=== PATIENT | female | born 1950 | race Caucasian/White ===

== ENCOUNTER 2024-11-18 06:11 | Day surgery (SDC) | payer MEDICARE, OTHER, SELFPAY ==
[2024-11-18] VITALS (15 sets, daily range): BP systolic 85–126; BP diastolic 33–66; BMI 29.3
[2024-11-18 07:43] LABS: Glucose - Point of Care 129 mg/dl (70-99)
--- NOTE | 2024-11-18 10:58 | ITS.CL.CATH ---
Vice President [employer] - Catheterization
Cardiac Catheterization
Procedure Report:
CARDIAC CATHETERIZATION REPORT
Date of Procedure: 11/18/2024
Referring: Tom Chavez D.O.
Indication: Progressive aortic and mitral valve disease, heart failure with preserved ejection fraction.
PROCEDURE:
1. Right heart catheterization.
2. Coronary angiography.
A total of 0 minutes of procedural/moderate sedation was utilized. An independent medical reception specialist was present to assist with and help manage the patient's level of consciousness and physiologic status.
ACCESS:
1. 6 [place] right radial artery using a modified Seldinger technique.
2. 5 [place] right antecubital vein using a previously placed IV.
CATHETERS:
1. 5 [place]itian balloon.
2. 5 [place] JL 3.5.
3. 5 [place] JR4.
4. 4 [place] multipurpose.
HEMODYNAMIC DATA
Weight (kg): 73.3
AO (s/d/x, mmHg): 118/58/86
LV (s/x, mmHg): Not obtained. 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
PCWP (a/v/x, mmHg): 25/45/21
PA (s/d/x, mmHg): 48/23/31
RV (s/x, mmHg): 48/11
RA (a/v/x, mmHg): 14/14/12
SVC SvO2 (%): 64.0
IVC SvO2 (%): Not obtained.
RA SvO2 (%): Not obtained.
RV SvO2 (%): Not obtained.
PA SvO2 (%): 63.6
SaO2 (%): 89.0
Hbg (g/dL): 11.7
FABBY
CO (L/min): 4.0
CI (L/min/m2): 2.30
Thermodilution
CO (L/min): Not performed.
CI (L/min/m2): Not performed.
TPG (mmHg): 10
PVR (Alvarado Units): 2.5
SVR (dynes*seconds*cm^-5): 1480
AVO2 Diff (Volume %): 4.04
AV gradient (x, mmHg): Not obtained.
AV area (cm2): Not obtained.
MV gradient (x, mmHg): Not obtained.
MV area (cm2): Not obtained.
LEFT VENTRICULOGRAPHY: Not performed.
AORTOGRAPHY: Not performed.
CORONARY ANGIOGRAPHY
Dominance: Right.
Left Main: Normal size, long, bifurcating vessel. There is no coronary artery disease.
LAD: Normal size vessel giving rise to 2 significant diagonals before wrapping around the apex. There is dense external calcification but minor internal luminal irregularities.
Ramus: Congenitally absent.
Circumflex: Normal size, nondominant vessel giving rise to 1 large obtuse marginal. The marginal is moderate to severely tortuous. There is no coronary artery disease.
RCA: Normal size, dominant vessel. There is a calcified, 90% lesion in the proximal RCA followed by a 60% lesion in the proximal RCA.
INTERVENTIONS
1. Pullback gradient from the aorta into the right subclavian demonstrating no significant stenosis.
Narrative:
Cardiac catheterization was performed from the right radial artery access point. While attempting to advance the diagnostic catheter into the aorta, significant resistance was encountered in the right subclavian/innominate. A hydrophilic J-shaped
Glidewire was used to cross the subclavian stenosis and enter the ascending aorta. After completing the diagnostic cardiac catheterization, a multipurpose catheter was placed in the ascending aorta and pullback gradient was obtained to assess for
the severity of the stenosis. Interestingly, there was no significant stenosis observed on pullback, suggesting that the calcified lesion in the subclavian is not contributing to any meaningful degradation of pressure in the right arm.
Closure Device: Vascular band for the right radial artery, manual pressure for the right antecubital vein.
Radiation dose (mGy): 277.72
DAP (cm2.Gy): 24.5413
Fluoroscopy time (minutes): 5.4
CONCLUSIONS:
1. Right dominant circulation with dense external calcification of the left circulation but only minor luminal irregularities within the LAD and a calcified, 90% lesion in the proximal RCA followed by a 60% lesion in the proximal RCA.
2. Moderately elevated filling pressures (PCWP = 21 mmHg at 73.3 kg) with a large V wave (45 mmHg) consistent with known history of severe mitral valve regurgitation.
3. 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
4. Moderate aortic valve stenosis and severe, eccentric mitral regurgitation by echocardiography.
5. Calcific, atherosclerotic plaque of the right subclavian artery without significant pressure degradation on pullback.
6. Mild postcapillary pulmonary hypertension (mean PA = 31 mmHg, PCWP = 21 mmHg, cardiac output = 4.0 L/min, PVR = 2.5 Alvarado units), WHO group 2.
RECOMMENDATIONS:
1. Expectant management after cardiac catheterization via right radial/antecubital approach.
2. Limited weight bearing on the right wrist for one week.
3. Continue secondary prevention with aspirin 81 mg daily and atorvastatin 80 mg daily. Goal LDL <55.
4. Continue with evaluation for surgical valve replacement given likely poor candidacy for TAVR as well as MitraClip.
5. Continue current diuretics and GDMT as hemodynamics will tolerate.
Copy to: ALICE Gunn
Tom Chavez, DO, FACC, FACP
[2024-11-18 11:15] LABS: Glucose - Point of Care 123 mg/dl (70-99)
[2024-11-18] MEDS: LASIX 20 MG IV (11:40)
[2024-11-18] MEDS: KCL 40 MEQ PO (11:42)
== END 2024-11-18 13:53 | disposition home or self-care (01) ==
LOC: CATH 06:11
PROVIDERS: ATTENDING PHYSICIAN Internal Medicine Cardiovascular Disease; FAMILY PHYSICIAN Nurse Practitioner Family
DX: I08.0 Rheumatic disorders of both mitral and aortic valves (principal); I11.0 Hypertensive heart disease with heart failure; I50.32 Chronic diastolic (congestive) heart failure; E78.2 Mixed hyperlipidemia; E11.9 Type 2 diabetes mellitus without complications; Z87.891 Personal history of nicotine dependence; Z82.49 Family history of ischemic heart disease and other diseases of the circulatory system; Z79.82 Long term (current) use of aspirin; Z79.84 Long term (current) use of oral hypoglycemic drugs; I27.29 Other secondary pulmonary hypertension
CPT/HCPCS: 93312; 93320; 93325; C1894; C1769; 82962; 93456; Q9967

== ENCOUNTER → 2024-11-30 13:39 | Outpatient (REF) | payer MEDICARE, OTHER, SELFPAY | LOC: RAD 13:39 | PROVIDERS: ATTENDING PHYSICIAN Thoracic Surgery (Cardiothoracic Vascular Surgery); FAMILY PHYSICIAN Nurse Practitioner Family | DX: I34.0 Nonrheumatic mitral (valve) insufficiency (principal); Z01.810 Encounter for preprocedural cardiovascular examination | CPT/HCPCS: 71275; 74174; Q9967 ==

== ENCOUNTER 2024-12-07 05:15 | Inpatient (IN) | payer MEDICARE, OTHER, SELFPAY ==
[2024-12-06 12:32] VITALS: BMI 28.5
[2024-12-06 13:36] LABS: Hematocrit 36.6 % (37.0-47.0); Hemoglobin 11.9 g/dL (12.0-16.0); Mean Corp Hgb Conc. 32.5 g/dL (33.0-37.0); Mean Corpuscular Volume 86.7 fL (81.0-99.0); Nucleated Red Blood Cells % 0 %; Platelet Count 198 10^3/uL (130-400); Red Cell Dist. Width 13.6 % (11.5-14.5)
[2024-12-06 13:46] LABS: INR 0.96; PT 13.1 Sec (11.4-14.6)
[2024-12-06 13:57] LABS: Urine Character Clear (Clear)
--- NOTE | 2024-12-06 14:02 | CM ---
Chart reviewed. Met with the patient in PAT. Reviewed preoperative and postoperative instructions and restrictions, along with showering guidelines. Gave patient 2 soaps. Patient is agreeable to a home visit by CT Transitional RN. Patient is
independent of ADLS, lives alone in a 2 STH, 1st floor set up, 1 [facility], ambulates with a SPC, has a shower chair and grab bars. Patient with 3 supportive daughters to help assist and a brother who lives close. Plan is for the patient to return home
with CT Transitional RN. CM to follow
[2024-12-06 14:13] LABS: ALT (SGPT) 24 U/L (0-35); AST (SGOT) 28 U/L (14-36); Albumin 4.9 g/dl (3.5-5.0); Alkaline Phosphatase 62 U/L (38-126); Blood Urea Nitrogen 25 mg/dl (7-17); Calcium 10.3 mg/dl (8.4-10.2); Carbon Dioxide 31 mmol/L (22-30); Chloride 103 mmol/L (98-107); Estimated Creatinine Clearance 66 ml/min; Glucose 101 mg/dl (70-99); Potassium 4.1 mmol/L (3.5-5.1); Sodium 141 mmol/L (135-145); Total Protein 7.1 g/dl (6.3-8.2); eGFR > 60.00
[2024-12-06 14:36] LABS: Glycohemoglobin (HgbA1c) 6.1 % (4.0-5.6)
[2024-12-07] VITALS (15 sets, daily range): BP systolic 75–121; BP diastolic 44–84; BMI 28.5
[2024-12-07] MEDS: LOPRESSOR 25 MG PO (05:43)
[2024-12-07] MEDS: PROTONIX 40 MG PO (05:43)
[2024-12-07] MEDS: MAGNESIUM OXIDE 500 MG PO (05:43)
[2024-12-07] MEDS: BACTROBAN 2% OINTMENT 1 APPLIC NASAL ×2 (05:44→19:41)
--- NOTE | 2024-12-07 05:50 | PTCARENOTE ---
Pt admitted to room 2261. Pt confirmed 2 CHG showers at home and NPO status. Pt oriented to room. Changed into gown. Weight and VS obtained. Pt clipped and wiped w/ CHG wipes. ABO drawn and sent. Admission questions completed. Home medications
confirmed. Daughter at the bedside. Call lyons within reach.
--- NOTE | 2024-12-07 06:02 | W.CVOR.SURPR ---
CVOR Surgeon Immed Pre Op
-
I have examined this patient prior to performance of the scheduled procedure.
The patient's condition is unchanged from the time of the dictated/written History and
Physical and the patient is able to undergo the scheduled procedure.
High risk AVR MVR CABG LAAE
[2024-12-07 07:09] LABS: ACT+ - POC 131 Seconds (82-134)
[2024-12-07 08:17] LABS: ACT+ - POC 640 Seconds (82-134)
[2024-12-07 08:33] LABS: Urine Character Clear (Clear)
[2024-12-07 08:52] LABS: ACT+ - POC 646 Seconds (82-134)
[2024-12-07 09:22] LABS: ACT+ - POC 582 Seconds (82-134)
[2024-12-07 09:58] LABS: ACT+ - POC 527 Seconds (82-134)
--- NOTE | 2024-12-07 10:03 | W.PN.CD ---
Today's Communication / Plan
-
Anticipate routine post operative management.
Wean vent to extubate.
Wean pressors/inotropes to MAP > 65 mmHg, CI > 1.8 L/min/m2.
Impression / Plan
-
Impression/Plan: 74 y/o female with NIDDM, HTN< HLD, EtOH dependence, moderate and severe, symptomatic mitral valve regurgitation and CAD in the RCA admitted for elective AVR/MVr/CABG.
#Severe mitral valve regurgitation/moderate aortic valve stenosis
-Chronic, progressive.
-Currently undergoing AVR/MVr with concurrent CABG/LAAE.
-Anticipate routine post operative course.
-Wean vent to extubate.
-Wean pressors/inotropes for a MAP > 65 mmHg, CI > 1.8 L/min/m2.
-Pain/chest tube management per CTS.
#CAD
-Chronic, progressive.
-Currently undergoing surgery (including single vessel CABG).
-Post operative management as above.
-Continue atorvastatin when taking PO.
#HTN
-Chronic, stable.
-Reintroduce antihypertensive meds when BP will permit.
#HLD
-Chronic, stable.
-Continue atorvastatin.
-Goal LDL < 55.
#NIDDM2
-Chronic.
Subjective/Interval History:
Currently undergoing open heart surgery.
DATA:
CTA Chest/Abdomen/Pelvis, 11/30/2024:
IMPRESSION:
1. Coronary and aortic advanced atherosclerotic changes. Negative for aortic aneurysmal dilation. Stenosis of left subclavian artery.
2. No acute pulmonary process.
3. No acute intra-abdominal process.
DANIEL. 11/18/2024:
CONCLUSIONS
Normal biventricular size and systolic function without regional wall motion
abnormality. LVEF 60-65%.
Severe eccentric mitral regurgitation due to P3 flail.
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
of the aortic valve.
At least mild aortic stenosis.
No prior study available for comparison.
Cardiac Catheterization, 11/18/2024:
CONCLUSIONS:
1. Right dominant circulation with dense external calcification of the left circulation but only minor luminal irregularities within the LAD and a calcified, 90% lesion in the proximal RCA followed by a 60% lesion in the proximal RCA.
2. Moderately elevated filling pressures (PCWP = 21 mmHg at 73.3 kg) with a large V wave (45 mmHg) consistent with known history of severe mitral valve regurgitation.
3. 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
4. Moderate aortic valve stenosis and severe, eccentric mitral regurgitation by echocardiography.
5. Calcific, atherosclerotic plaque of the right subclavian artery without significant pressure degradation on pullback.
6. Mild postcapillary pulmonary hypertension (mean PA = 31 mmHg, PCWP = 21 mmHg, cardiac output = 4.0 L/min, PVR = 2.5 Alvarado units), WHO group 2.
Physical Exam
Vital Signs/Labs
Vital Signs
Temp Pulse Resp BP Pulse Ox
36.9 C 96 18 121/80 97
12/07/24 05:37 12/07/24 05:37 12/07/24 05:37 12/07/24 05:16 12/07/24 05:37
12/05/24 12/06/24 12/07/24
11:59 11:59 11:59
Actual Weight 70.7 kg
12/06/24 12:38
12/06/24 12:38
PT 13.1 Sec (11.4-14.6) 12/06/24 12:38
INR 0.96 12/06/24 12:38
Physical Exam
Constitutional: No acute distress and Comfortable
EENT: Other (ET tube in place.)
Cardiovascular: Other (Chest currently opened, heart is plainly visible in the operative field.)
Neuro/Psych: Other (Intubated/sedated.)
Data Reviewed
-
Date of Service: December 07, 2024
Medical Decision Making: Reviewed Test Results, Test Interpretation and Review of Case with other Provider
EKG: Tracing Personally Visualized and interpreted and Report Reviewed by me
Echo: Report Reviewed by me
X-Ray/CT/US/MRI/NUC/PET: Image Personally Visualized and interpreted and Report Reviewed by me
Medical Tests (PFT, Pathology etc): Image Personally Visualized and interpreted and Report Reviewed by me
Labs: Labs Reviewed by me
[2024-12-07 10:07] LABS: Urine Squamous Cell >30 /LPF (Few)
[2024-12-07 10:10] LABS: Urine White Cell 30-40 /HPF (0-5)
[2024-12-07 10:11] LABS: Urine Red Blood Cell 0-2 /HPF (0-2)
[2024-12-07 10:15] LABS: B.E. - POC 5.7 mmol/L; Glucose - POC 145 mg/dl (70-99); HCO3 - POC 28 mmol/L (21-28); Hematocrit - POC 26 % PCV (37-47); Hemodilution- POC Yes; Hemoglobin Calculated - POC 8.9; Ionized Calcium - POC 1.06 mmol/L (1.15-1.33); Lactate - POC 0.94 mmol/L (0.36-0.75); O2 Saturation %Calculated-POC 99.9 % (94-98); PCO2 - POC 33 mmHg (35-48); PO2 - POC 309 mmHg (83-108); POC Comment CPB; Potassium - POC 3.9 mmol/L (3.5-5.1); Sodium - POC 144 mmol/L (136-145); Specimen Type - POC Arterial; pH - POC 7.55 (7.35-7.45)
--- NOTE | 2024-12-07 10:25 | CM ---
Chart reviewed. Patient is in the OR today. Patient is independent of ADLS, lives alone in a 2 STH, 1st level set up, 1 [facility], ambulates with a SPC and also has a shower chair and grab bars. Patient with 3 supportive children and a brother who
lives close. Plan is for the patient to return home with CT Transitional RN. CM to follow
[2024-12-07 10:26] LABS: ACT+ - POC 589 Seconds (82-134)
[2024-12-07 11:07] LABS: B.E. - POC 7.3 mmol/L; Glucose - POC 140 mg/dl (70-99); HCO3 - POC 31 mmol/L (21-28); Hematocrit - POC 27 % PCV (37-47); Hemodilution- POC Yes; Hemoglobin Calculated - POC 9.1; Ionized Calcium - POC 1.09 mmol/L (1.15-1.33); Lactate - POC 1.31 mmol/L (0.36-0.75); O2 Saturation %Calculated-POC 99.9 % (94-98); PCO2 - POC 41 mmHg (35-48); PO2 - POC 296 mmHg (83-108); POC Comment CPB; Potassium - POC 3.5 mmol/L (3.5-5.1); Sodium - POC 144 mmol/L (136-145); Specimen Type - POC Arterial; pH - POC 7.49 (7.35-7.45)
[2024-12-07 11:14] LABS: ACT+ - POC 123 Seconds (82-134)
[2024-12-07 11:17] LABS: B.E. - POC 4.7 mmol/L; Glucose - POC 122 mg/dl (70-99); HCO3 - POC 29 mmol/L (21-28); Hematocrit - POC 24 % PCV (37-47); Hemodilution- POC Yes; Hemoglobin Calculated - POC 8.1; Ionized Calcium - POC 1.25 mmol/L (1.15-1.33); Lactate - POC 0.82 mmol/L (0.36-0.75); O2 Saturation %Calculated-POC 100.0 % (94-98); PCO2 - POC 38 mmHg (35-48); PO2 - POC 523 mmHg (83-108); POC Comment POST; Potassium - POC 3.2 mmol/L (3.5-5.1); Sodium - POC 142 mmol/L (136-145); Specimen Type - POC Arterial; pH - POC 7.48 (7.35-7.45)
--- NOTE | 2024-12-07 11:29 | W.PN.CT.SURG ---
CT Surgery Operative Note
-
CARDIAC SURGERY OPERATIVE REPORT
Preoperative Diagnosis: Mixed pathology mitral valve with severe insufficiency, severe aortic valve stenosis, single-vessel coronary artery disease
Postoperative Diagnosis: Same, new onset atrial fibrillation
Procedure(s) Performed:
1. Standard sternotomy with aortic and bicaval cannulation
2. Modified left atrial maze [encompass clamp with RF ablation] and left atrial appendage exclusion [35 mm device]
3. Chordal sparing mitral valve replacement [relocation of anterior leaflet to the posterior annulus] using a 29 mm bioprosthesis
4. Extensive debridement of the mitral annulus and aortic annulus using an ultrasonic debrider, modifier 22 for added complexity and time
5. Surgical aortic valve replacement [23 mm bioprosthesis]
6. CABG x 1 [Ao to RSVG to distal RCA], endoscopic vein harvesting of the right lower and left lower extremity
7. Placement of temporary atrial and ventricular pacing wires
8. Transesophageal echocardiography
Date of Surgery: 12/07/2024
Comorbidities:
1. Mixed pathology mitral valve insufficiency, severe, type IIIb and II
2. Severe aortic valve stenosis with a mean gradient of 55 on DANIEL
3. Diabetes type 2
4. Hypertension
5. Hyperlipidemia
6. Osteoporosis
7. Epidural abscess
8. History of alcohol abuse
Attending Surgeon: Santiago Juarez MD, MS
Assistants: Natasha Sanchez PA-C (present and necessary to first breaker feeder, retraction, suction, exposure, suture management, and wound closure under my direction) and Seema Samuels PA-C (endo vein harvest)
Anesthesiology: Anthony Virgen MD and Donato Figueroa CRNA
Scrub and Circulating RNs: Papa Phan, RN, Mohsen Umanzor RN
Pouring Crane Operator: Nato Melara CCP
Anesthesia: GETA
EBL: per perfusion records
Products: None
CPB Time: 153 minutes
Aortic Cross Clamp Time: 132 minutes
Indication(s) for Procedures: This is a 74-year-old female with mixed otology mitral valve with mitral annular calcification and severe insufficiency, she also had aortic valve stenosis and based on her recent worsening of her symptoms, she
underwent workup for surgical evaluation. As part of her workup she had a left heart catheter demonstrated single-vessel ostial RCA disease. She was ultimately offered double valve replacement given the mitral pathology, single-vessel bypass and
ligation of her left atrial appendage.
Aortic Valve Description: Heavily calcified trileaflet aortic valve, heavily calcified sinotubular junction extending down to the sinuses, left and right coronary ostia normal anatomic positions with the cephalad portion of the ostia heavily
calcified into the STJ.
Mitral Valve Description: Thickening of the anterior and posterior leaflets, the interestingly was a perforation of the P3 leaflet as there was mitral annular calcification and infiltrating into the P2 and P3 segments. Given the retracted leaflets
in the posterior aspect and the MAC, her valve was not salvageable.
Findings: Her left ventricular ejection fraction preoperatively was 60% with no significant regional wall motion abnormalities. She had severe degree of mitral valve insufficiency as well as a severe degree of aortic valve stenosis. Following
surgery EF remained the same at 55% with no new regional wall motion abnormalities when she was back in sinus rhythm. Her mitral valve was replaced in a chordal sparing technique, I did have to use the CUSA debridement device at the P2 P3 segment
of the valve after detaching the posterior leaflet as there was a large area of calcification that would not allow compliance of the annulus or placement of a bioprosthetic valve. The anterior leaflet of the mitral valve was resected and the
primary cords were relocated to the posterior annulus at P2 and P3. A total of 13 pledgeted 2 Ethibond sutures were placed from LV through leaflet through annulus and ultimately through the cuff of the bioprosthetic valve which was secured to place
with core knots. An LV vent was then placed across the mitral valve and the left atrium was partially closed. The aortic valve was resected and the CUSA debridement device was also used at the noncoronary cusp as it was heavily calcified here. A
total of 13 nonpledgeted 2 Ethibond sutures were placed from LVOT through annulus through sewing cuff of a 23 mm bioprosthetic valve. It was secured into place after with core knots gently working it down into the annulus through the calcified
sinotubular junction. The left and right coronary ostia were visualized to be unobstructed and the annulus to be well-approximated to the sewing cuff. Single-vessel bypass was performed to distal RCA, this was a good quality target but easily
accommodated a 2.0 mm probe. The vein graft was beveled accordingly and end-to-side anastomosis was created. After induction of anesthesia, she did have multiple episodes of atrial fibrillation and so a posterior wall isolation was performed with
the encompass clamp and the left atrial appendage was ligated flush the base with no residual flow. The ligament of Ermias was also divided. Final mean gradient on the mitral valve was 1 mmHg and the final mean gradient across the aortic valve
was 7 mmHg. There is no PVL of either prosthesis trace degree of central mitral valve insufficiency on the bioprosthetic valve.
Specimen(s): Parts of the mitral valve leaflets, aortic valve leaflets.
Prosthesis:
1. 23 mm Gonzalez Inspiriss Resilia aortic valve, serial #[id number]
2. 29 mm Gonzalez mitris Resilia mitral valve, serial #[id number]
3. 35mm left atrial appendage clip, see #[id number]
Description of Procedure: The patient was taken to the operating room. Their identity and procedure to be performed were verified and they were positioned supine on the operating table. Induction via general anesthesia with endotracheal intubation
was performed and central venous access and arterial monitoring were inserted. A preoperative transesophageal echocardiogram was performed to assess cardiac function and valvular function. The patient was then prepped and draped from chin to feet in
a sterile fashion. A preoperative time-out was performed with all members of the team present. A midline chest incision was performed along with median sternotomy. Simultaneous access to the right lower extremity and then left lower extremity was
performed for endoscopic vein harvest. She had poor right thigh vein. The innominate vein was isolated. Full heparinization was given (a total of 45,000 units). We created a pericardial well. The aortic cannulation site was chosen where it was
soft, pliable, and free of calcium. Cannulation was performed with an arterial cannula in the ascending aorta, angled metal tip cannular in the superior vena cava and straight bendable cannula in the inferior vena cava. The arterial cannula line had
an appropriate bounce and correlating pressures. Next, a root vent/antegrade cannula was inserted into the ascending aorta. The ACT was confirmed to be over 400 and retrograde autologous priming was performed before commencing cardiopulmonary
bypass. At this point the SVC was away from the main and right pulmonary artery. The oblique sinus was also developed. While on cardiopulmonary bypass the encompass clamp was passed underneath the SVC and IVC across the transverse and
oblique sinuses, respectively. 3 successful pairs of ablation were performed. The pulmonary artery was away from the aorta to facilitate a clamp site. Sondergaard�s groove was developed. The aortic cross-clamp was placed after decreasing
the flow on the bypass and mean arterial pressure. A total of 1.2L initial dose of antegrade Del-Nido cardioplegia solution was given and planned for re-dosing every 60 minutes as necessary. There was rapid electro-mechanical arrest of the heart at
400 deformed and 70 cc of cardioplegia. The left ventricle was observed for distention on echocardiogram and manual palpation. Cold slush was placed into a lap on the RV and we systemically cooled to 34 degrees centigrade. Once the heart was fully
arrested was rotated medially and the ligament of Ermias was divided. The left atrial appendage was then clipped flush to the base with a 35 mm device.
Carbon dioxide was used to flood the field. We manually identified the location of the right coronary take off. An aortotomy was made approximately 2cm above the sinotubular junction. The location of both left and right coronary vessels were
visualized in the root.The leaflets were excised and sent for pathological assessment. The annulus was debrided of any calcium being mindful of the annulus and membranous septum. The root and left ventricular outflow tract were thoroughly irrigated
to remove any debris. A drop sucker is in place across the annulus into the LVOT
Next, the mitral valve was accessed via the Sondergaard's groove followed by valve analysis. The mitral valve was replaced as described above. The left ventricular vent was repositioned across the mitral valve into the left ventricular and the left
atrium was closed with a 3-0 prolene. At this point I dissected the distal RCA using a [place] blade and a small coronary arteriotomy was then created. An aside anastomosis was created with the vein graft using 7-0 Prolene in a running fashion.
Test dosing of antegrade cardioplegia down the graft confirmed excellent flow and we also used this opportunity to give additional cardioplegia to protect the right coronary system. Additional direct ostial left main cardioplegia was also given.
I turned my attention back toward the root. Additional debridement was performed using an ultrasonic debridement device A total of 13 Non-pledgeted 2-0 ethibond inverted annular sutures were placed FVES-nd-vyams circumferentially. These were
brought through the sewing cuff of the prosthetic valve which as then parachuted into place. The left and right coronary ostia were visualized and were unobstructed by the valve. A Cor-Knot device was used to secure the annular sutures. The valve
was inspected and was well seated. The aortotomy was approximated with 4-0 prolene in two layers. I then performed a single aortotomy with a 4.0 mm punch and the proximal end of the vein graft was then anastomosed in end-to-side fashion using 6-0
Prolene.
De-airing maneuvers were performed and temporary atrial and ventricular pacing wires were placed at the SVC/RA junction and base of the right ventricle, respectively. The patient was placed in a Trendelenburg position and flows on bypass were
lowered. The aortic cross clamp was removed and flows were slowly brought back up. The left atrial suture line was hemostatic. Transesophageal echocardiography revealed no evidence of paravalvular leaks and normal leaflet excursion and ventricular
function was normal. The AV prosthesis was well seated without PVL or AI. Once de-airing was satisfactory the left ventricular and root vents were removed. After verifying acceptable parameters, we initiated weaning from cardiopulmonary bypass. Once
we were off cardiopulmonary bypass, the venous cannulas was clamped and removed sequentially. A test dose of protamine was administered and the patient was monitored for any adverse reaction before resuming protamine. Once half of the protamine dose
was delivered, pump suckers were turned off and the systolic blood pressure was lowered for aortic decannulation. The aortic cannula was removed and purse strings were tied down. All cannulation sites were oversewn with a 4-0 prolene. The left
atrial suture line was inspected and hemostasis was confirmed. Mediastinal hemostasis was obtained. Two #24 Darnell drains were placed within the pericardium. A single #19 Darnell drain was placed to the right hemithorax. The sternum was approximated
with 4 #7 single and 3 #8 double stainless steel wires. Fascia was approximated with #1 vicryl suture. The subcutaneous, dermis and epidermis were closed in layers in a running fashion. The skin wound was cleansed and dressed.
All instrument, sponge, and needle counts were confirmed to be correct x 2 at the end of the operation. The patient was transferred to the cardiac intensive care unit in critical but stable condition.
I, Dr. Santiago Juarez, was present, scrubbed for, and performed all critical elements of this procedure.
Santiago Juarez MD, MS
Cardiothoracic Surgeon
[facility]
This dictation was created using the [employer] dictation system. Please excuse any grammatical, typographical, or 'sound alike' errors
[2024-12-07 11:56] LABS: B.E. - POC 7.6 mmol/L; Glucose - POC 132 mg/dl (70-99); HCO3 - POC 31 mmol/L (21-28); Hematocrit - POC 27 % PCV (37-47); Hemodilution- POC Yes; Hemoglobin Calculated - POC 9.3; Ionized Calcium - POC 1.04 mmol/L (1.15-1.33); Lactate - POC < 0.30 mmol/L (0.36-0.75); O2 Saturation %Calculated-POC 100.0 % (94-98); PCO2 - POC 39 mmHg (35-48); PO2 - POC 476 mmHg (83-108); POC Comment CPB; Potassium - POC 3.9 mmol/L (3.5-5.1); Sodium - POC 142 mmol/L (136-145); Specimen Type - POC Arterial; pH - POC 7.51 (7.35-7.45)
[2024-12-07 11:56] LABS: B.E. - POC 2.8 mmol/L; Glucose - POC 136 mg/dl (70-99); HCO3 - POC 28 mmol/L (21-28); Hematocrit - POC 34 % PCV (37-47); Hemodilution- POC Yes; Hemoglobin Calculated - POC 11.6; Ionized Calcium - POC 1.23 mmol/L (1.15-1.33); Lactate - POC < 0.30 mmol/L (0.36-0.75); O2 Saturation %Calculated-POC 99.9 % (94-98); PCO2 - POC 44 mmHg (35-48); PO2 - POC 337 mmHg (83-108); Potassium - POC 3.4 mmol/L (3.5-5.1); Sodium - POC 143 mmol/L (136-145); Specimen Type - POC Arterial; pH - POC 7.41 (7.35-7.45)
[2024-12-07 11:57] LABS: B.E. - POC 7.5 mmol/L; Glucose - POC 165 mg/dl (70-99); HCO3 - POC 32 mmol/L (21-28); Hematocrit - POC 27 % PCV (37-47); Hemodilution- POC Yes; Hemoglobin Calculated - POC 9.2; Ionized Calcium - POC 1.06 mmol/L (1.15-1.33); Lactate - POC < 0.30 mmol/L (0.36-0.75); O2 Saturation %Calculated-POC 100.0 % (94-98); PCO2 - POC 43 mmHg (35-48); PO2 - POC 364 mmHg (83-108); POC Comment CPB; Potassium - POC 4.1 mmol/L (3.5-5.1); Sodium - POC 142 mmol/L (136-145); Specimen Type - POC Arterial; pH - POC 7.48 (7.35-7.45)
--- NOTE | 2024-12-07 12:20 | PTCARENOTE ---
Received pt from CVOR team. Intubated and sedated on the ventilator. # 8 ETT at 22 cm rt lip. SIMV 40 % 14/ 450/ 5/ 5 pulse ox 99%
[2024-12-07 12:24] LABS: Glucose - Point of Care 133 mg/dl (70-99)
--- NOTE | 2024-12-07 12:30 | PTCARENOTE ---
Received pt from CVOR team. Intubated and sedated on the ventilator. # 8 ETT at 22 cm rt lip. SIMV 40 % 14/ 450/ 5/ 5 pulse ox 99%. SR with 1 degree AVB on monitor. A & V epicardial wites intact. No pacing noted at this time. Chest tubes x 3
to - 20 cm suction. No air leak or crepitus noted. RT IJ cordis with swan at 50 cm. RT Radial A line transducing. Lines leveled, recalibrated and flushed. BP Labile , LR 250 ML bolus administered. Levophed titrated as needed. Insulin and
precedex infusing. She flow sheets for totals/titrations. Abdomen obese and non tender. Lawrence draining pink tinged urine. Pulses palpable. Surgical sites well approximated. Plan discussed with team at handoff.
[2024-12-07 12:37] LABS: B.E. 3.2 mmol/L; HCO3 26.5 mmol/L (21-28); O2 Saturation % 99.6 % (94-98); O2 Therapy vent; PCO2 34 mmHg (32-35); PO2 167 mmHg (83-108); Potassium 3.6 mMOL/L (3.5-5.1); Sodium 140 mMOL/L (136-145)
--- NOTE | 2024-12-07 12:47 | W.PN.UPDATE ---
Update Note
Progress Note Update
74-year-old female was electively admitted on 12/07/2024 for AVR, MVR, CABG, and clip due to severe MR, and a 90% RCA stenosis.
IV fluids: 1300
U.O.:� 600
UF:� 1000
Blood:� none
Wires:� A + V
Drips: Levo @ 6, Insulin, Precedex @ 0.3
�
NEURO: sedated, pupils +2mm B/L
RESP: #8OT @24cm> 450/50%/14/5. Lungs clear B/L. 2 mediastinal (10cc on arrival) and R pleural (10cc on arrival) chest tubes to -20cm suction. Sanguineous drainage, no air leak, no crepitus
CV: RRR +S1, S2, no S3, no�rub, no murmur. Dermabond to median sternotomy. RIJ w/Lorain locked @ 40cm. PA 43/21; CVP 12
ABD: obese, soft, no BS
EXT: no edema, +2/4 DP pulses B/L, no femoral bruit, LLE ROJAS wrap intact; right radial A-line intact
: Lawrence with light pink tinged urine
�
A/P: POD #0 s/p aortic valve replacement #23 mm Inspiris Resilia, mitral valve replacement #29 mm Mitris Resilia (chordal sparing), CABG x 1 [SVG to distal RCA], modified left atrial maze [encompass clamp with RF ablation] and left atrial appendage
exclusion [#35 mm device]
DANIEL: EF�55%, AV 14/7mmHg, MV 2/1mmHg, no residual lumen s/p clip, mild TR
- wean and extubate
# s/p AVR/MVR
- will need instruction regarding antibiotic prophylaxis for dental and invasive procedures
- TTE prior to DC
# CAD
- will require ASA, Plavix, high intensity statin, beta-tino
# brief intra-op AF
- currently SR w/1st AVB
- AF prophylaxis with Amio 200mg TID
# acute surgical blood loss anemia-expected
- trend CBC
�
# T2DM (A1C 6.1)
- insulin infusion x 48h
- diabetes LITHODUPLICATOR OPERATOR consulted
- on MFM 500mg/d
- t/c Farxiga
�
# Moderate left subclavian stenosis
- assess for discrepancy in B/L UE cuff pressures
[2024-12-07 12:53] LABS: Hematocrit 24.5 % (37.0-47.0); Hemoglobin 8.2 g/dL (12.0-16.0); Platelet Count 132 10^3/uL (130-400)
[2024-12-07] MEDS: ANCEF 10 IV ×2 (12:56→12:57)
[2024-12-07] MEDS: LR 250 ML IV ×4 (12:57→16:44)
[2024-12-07] MEDS: NSS 500 IV (12:57)
[2024-12-07] MEDS: KCL 50 IV ×2 (12:57→13:42)
[2024-12-07 13:00] LABS: B.E. 1.7 mmol/L; HCO3 25.6 mmol/L (21-28); O2 Saturation % 99.8 % (94-98); PCO2 36 mmHg (32-35); PO2 140 mmHg (83-108); Potassium 3.8 mMOL/L (3.5-5.1)
[2024-12-07 13:01] LABS: Blood Urea Nitrogen 22 mg/dl (7-17); Estimated Creatinine Clearance 76 ml/min; Glucose 120 mg/dl (70-99); Magnesium 2.4 mg/dl (1.6-2.3)
[2024-12-07 13:06] LABS: APTT 36.2 Sec (23.4-35.0); INR 1.52; PT 18.8 Sec (11.4-14.6)
[2024-12-07 13:12] LABS: Glucose - Point of Care 131 mg/dl (70-99)
--- NOTE | 2024-12-07 13:14 | CON.INTV ---
Consultation
Consultation Request
Date/Time Consultation Requested: 12/07
Date/Time Consultation Performed: 12/07
Reason for Consultation: Critical care
Medical History
-
History of Present Illness:
History obtained from the chart as patient is currently intubated. Patient is a 74-year-old female with history of valvular disease, mitral valve regurgitation, aortic stenosis. Records suggest increased shortness of breath over the past 3 months.
Recent workup revealed normal ejection fraction, moderately enlarged left atrium, aortic stenosis valve area 0.38. Cardiac catheterization revealed single-vessel coronary disease of the RCA. Patient also noted to have mitral valve disease, with
DANIEL 11/18/2024 with severe eccentric mitral regurgitation. Presently patient is status post chordal sparing mitral valve replacement with bioprosthesis, surgical aortic valve replacement with bioprosthesis, single CABG. We are asked to help from
critical care standpoint
Presently, patient is on norepinephrine and vasopressin has been started. Hypotension noted. Minimal output via chest tube. Remains on volume cycle ventilation. She is moving extremities and turning head.
.
PMH: Coronary disease per catheterization, hypertension, hyperlipidemia, diabetes, valvular disease now status post mitral valve and aortic valve prosthesis November 2024, single bypass surgery November 2024. History of spina bifida, neurogenic bladder,
epidural abscess. History of bilateral hip replacement, laminectomy, left foot fifth toe surgery for nonhealing ulcer
Past Medical History
Past Medical History: None (See above)
Past Surgical History: None (See above)
Social History
Tobacco: Former Smoker ([id number], quit 2006)
Alcohol: Occasional
Drug: None
Personal:
Living: Alone
Employment: Retired (Customer service)
Family History
Family History: Other (Father age 74, mother age 80. Both with heart disease, uterine cancer in mother. Family history of colon cancer, diabetes. 3 daughters healthy)
Allergies / Home Medications
Allergies
Allergy/AdvReac Type Severity Reaction Status Date / Time
No Known Allergies Allergy Verified 11/18/24 10:57
Home Medications
�Medication �Instructions �Recorded �Confirmed �Last Taken �Type
amlodipine 10 mg tablet 10 mg PO DAILY 11/18/24 12/07/24 12/04/24 08:00 History
aspirin 81 mg tablet 81 mg PO DAILY 11/18/24 12/07/24 12/06/24 08:00 History
atorvastatin 80 mg tablet 80 mg PO HS 11/18/24 12/07/24 12/06/24 18:00 History
benazepril 40 mg tablet 40 mg PO DAILY 11/18/24 12/07/24 12/04/24 08:00 History
furosemide 40 mg tablet 40 mg PO DAILY 11/18/24 12/07/24 12/06/24 08:00 History
metformin 500 mg tablet 500 mg PO BID 11/18/24 12/07/24 12/06/24 18:00 History
Held on 11/18/24.
Instructions: Resume on
11/20/24.
multivitamin 1 tab PO DAILY 11/18/24 12/07/24 11/29/24 08:00 History
Review of Systems
-
Unable to Obtain full review of systems at this time due to: Patient Intubation
Vitals / Labs / Diagnostic Testing
Vital Signs
Temp Pulse Resp BP Pulse Ox
97.0 F 67 14 121/80 100
12/07/24 13:00 12/07/24 12:27 12/07/24 12:27 12/07/24 05:16 12/07/24 12:27
Lab Data
12/07/24 12:23
Laboratory Results
12/06/24 12/07/24 12/07/24
12:38 12:23 12:53
PT 13.1 18.8 H
INR 0.96 1.52
APTT 36.2 H
pH 7.50 H 7.46 H
pCO2 34 36 H
pO2 167 H 140 H
HCO3 26.5 25.6
O2 Delivery Level vent
Diagnostic Testing:
Physical Exam
-
HEENT: Normocephalic, Anicteric and Other (Lower extremity bandage left side)
Cardiovascular: S1/S2, Regular Rhythm, Murmur (n), Rub (n), Peripheral Edema (n) and Other (Right upper extremity A-line, right IJ, chest tube)
Respiratory: Wheeze (n), Rales (n), Rhonchi (n) and Non-Labored Respirations
GI: Soft and Distended (Mild)
Neurology: Other (Sedated)
Skin: Warm and Other (No rash)
General: Comfortable
Assessment
-
74-year-old female with progressive shortness of breath found to have valve disease and single-vessel coronary disease, status post aortic and mitral bioprosthetic valve replacement, single bypass with left lower extremity harvest 12/07/2024
S/p aortic valve, mitral valve repair with bioprosthesis, 12/07/2024
CABg x 1
Postoperative anemia
Postoperative hypotension requiring pressors
Atrial fibrillation
Conditions present prior to admission
Hypertension/hyperlipidemia
History of diabetes
History of epidural abscess
Moderate alcohol use
Distant tobacco history, quit 2006
Plan/recommendations
At this time, patient remains critically ill
Postoperative valvular repair with bioprosthesis aortic and mitral valve, bypass surgery x 1
Minimal chest tube drainage at this time
Postoperative hemoglobin 8.2
Currently on norepinephrine 18mg
Vasopressin being added
Postoperative chest x-ray unremarkable
Postoperative EKG sinus rhythm
Moving forward, continue with CT surgery management
Repeat chest x-ray pending
Follow hemoglobin
Blood products per CT surgery
Atrial fibrillation history noted. Left atrial appendage clip completed
Postoperative DANIEL revealed no paravalvular leak and normal leaflet excursion and normal ventricular function
Follow blood sugars
Wean ventilator per CT surgery protocol
Reviewed with critical care nursing
Will follow
TCCT 31 min
[2024-12-07] MEDS: DILAUDID 0.25 MG IV (13:20)
--- NOTE | 2024-12-07 13:47 | PTCARENOTE ---
BP continues to be labile, Levophed increased and additional [address] LOOM CHANGEOVER OPERATOR ordered PRBC x 1 unit. Will transfuse
[2024-12-07 14:18] LABS: Glucose - Point of Care 158 mg/dl (70-99)
[2024-12-07] MEDS: PITRESSIN 100 IV (14:50)
[2024-12-07 15:03] LABS: Glucose - Point of Care 133 mg/dl (70-99)
--- NOTE | 2024-12-07 15:27 | PTCARENOTE ---
1500 Vasopressin infusion initiated per CASTING AND CURING OPERATOR order. Pt responding well . Levophed dose weaned as able.
[2024-12-07] MEDS: LEVOPHED 250 IV ×2 (15:37→21:11)
[2024-12-07] MEDS: TYLENOL PO ×2 (15:37→21:03)
[2024-12-07] MEDS: NOVOLOG FLEXPEN SC ×2 (15:38→16:47)
[2024-12-07] MEDS: NEURONTIN PO ×2 (15:38→16:04)
[2024-12-07] MEDS: DOBUTREX 500 MG 250 IV (16:01)
[2024-12-07] MEDS: ZOFRAN 4 MG IV (16:02)
[2024-12-07] MEDS: PACERONE PO (16:03)
[2024-12-07 16:10] LABS: Glucose - Point of Care 113 mg/dl (70-99)
--- NOTE | 2024-12-07 16:33 | PTCARENOTE ---
DR Juarez in to assess. Dobut increased to 5 per him. Levo and Vaso titrated as needed to maintain BP parameters. CPAP trial in progress.
[2024-12-07] MEDS: ANCEF 5 IV (16:44)
[2024-12-07] MEDS: CALCIUM CHLORIDE 10% SYRINGE 500 MG IV (16:48)
[2024-12-07 16:50] LABS: Hematocrit 25.6 % (37.0-47.0); Hemoglobin 8.6 g/dL (12.0-16.0); Platelet Count 106 10^3/uL (130-400)
[2024-12-07 16:50] LABS: B.E. -1.3 mmol/L; HCO3 24.8 mmol/L (21-28); O2 Saturation % 99.0 % (94-98); PCO2 47 mmHg (32-35); PO2 122 mmHg (83-108); Potassium 4.4 mMOL/L (3.5-5.1)
[2024-12-07 16:59] LABS: Glucose - Point of Care 96 mg/dl (70-99)
--- NOTE | 2024-12-07 17:00 | RESPNOTE ---
Respiratory: patient extubated without incident @1655. No stridor/wheeze. SpO2 96% on 5 LPM nasal cannula.
--- NOTE | 2024-12-07 17:02 | PTCARENOTE ---
Extubated to 6 L NC at 1655. pulse ox 97-98% Family at bedside.
--- NOTE | 2024-12-07 17:17 | PTCARENOTE ---
Turned and repositioned. CHG cloth bath given. Tolerated. Drowsy. VSS.
[2024-12-07] MEDS: LOW STRENGTH ASPIRIN 81 MG PO (17:57)
[2024-12-07] MEDS: SODIUM BICARBONATE 50 MEQ IV (18:17)
[2024-12-07] MEDS: OFIRMEV 100 IV (18:18)
[2024-12-07 18:51] LABS: Glucose - Point of Care 118 mg/dl (70-99)
[2024-12-07 19:48] LABS: B.E. 0.3 mmol/L; HCO3 26.0 mmol/L (21-28); O2 Saturation % 98.5 % (94-98); PCO2 46 mmHg (32-35); PO2 94 mmHg (83-108); Potassium 3.9 mMOL/L (3.5-5.1)
--- NOTE | 2024-12-07 20:00 | PTCARENOTE ---
Assumed care of the patient at 1900. Patient in bed, AOx3, drowsy, neuro intact, VENETIE R>L. SR on CM, heart tones audible, mild +1 edema in axillae, AV wires tied to pacer box powered on, pulses palpable. Lungs dim throughout, CT x3, 4LNC,
intermittent nonproductive cough. Abdomen round/obese, hypoactive, tolerating sips and chips. Lawrence catheter in place draining clear yellow urine. All surgical sites stable and intact. RIJ cordis/swan, R radial art line, PIV; all applicable lines
leveled and calibrated. Patient updated on POC, in agreement, call lyons within reach, assessment of needs ongoing.
[2024-12-07 21:02] LABS: Glucose - Point of Care 114 mg/dl (70-99)
[2024-12-07] MEDS: NEURONTIN 100 MG PO (21:03)
[2024-12-07] MEDS: SENOKOT-S 1 TABLET PO (21:03)
[2024-12-07] MEDS: LIPITOR 80 MG PO (21:03)
[2024-12-07] MEDS: NITRO-BID 1 INCH TOPICAL (22:06)
[2024-12-07 22:10] LABS: Hematocrit 25.6 % (37.0-47.0); Hemoglobin 8.5 g/dL (12.0-16.0)
[2024-12-07 23:01] LABS: Glucose - Point of Care 100 mg/dl (70-99)
[2024-12-08] VITALS (26 sets, daily range): BP systolic 62–139; BP diastolic 29–74; PULSE 77; O2SAT 97; BMI 30.6
--- NOTE | 2024-12-08 | PTCARENOTE ---
Levo titrated down, patient received 1 uPRBCs, MVO2 and ABG drawn and sent x2, titrate Dobut per CVPA pending most recent BG results. Patient denies pain, remains drowsy, assessment of needs ongoing.
[2024-12-08 00:25] LABS: B.E. 0 mmol/L; HCO3 25.9 mmol/L (21-28); O2 Saturation % 99.7 % (94-98); PCO2 47 mmHg (32-35); PO2 114 mmHg (83-108); Potassium 3.6 mMOL/L (3.5-5.1)
[2024-12-08] MEDS: ANCEF 5 IV ×2 (01:04→08:56)
[2024-12-08 01:09] LABS: Glucose - Point of Care 93 mg/dl (70-99)
[2024-12-08] MEDS: KCL 50 IV ×2 (01:12→02:11)
[2024-12-08] MEDS: ZOFRAN 4 MG IV ×2 (01:29→08:57)
[2024-12-08 03:03] LABS: Glucose - Point of Care 110 mg/dl (70-99)
[2024-12-08] MEDS: ROXICODONE 5 MG PO (04:09)
[2024-12-08] MEDS: NITRO-BID 1 INCH TOPICAL (04:10)
[2024-12-08] MEDS: PITRESSIN 100 IV ×2 (04:22→22:15)
--- NOTE | 2024-12-08 04:37 | PTCARENOTE ---
Pain management, Dobut titrated per CVPA, CO/CI consistent, see worklist. Levo continued. Patient sleeping between care. Assessment otherwise unchanged.
[2024-12-08 04:51] LABS: Hematocrit 28.0 % (37.0-47.0); Hemoglobin 9.2 g/dL (12.0-16.0); Mean Corp Hgb Conc. 32.9 g/dL (33.0-37.0); Mean Corpuscular Volume 85.9 fL (81.0-99.0); Red Cell Dist. Width 14.4 % (11.5-14.5)
[2024-12-08 05:02] LABS: Blood Urea Nitrogen 22 mg/dl (7-17); Calcium 8.7 mg/dl (8.4-10.2); Carbon Dioxide 25 mmol/L (22-30); Chloride 113 mmol/L (98-107); Estimated Creatinine Clearance 65 ml/min; Glucose 101 mg/dl (70-99); Magnesium 1.8 mg/dl (1.6-2.3); Potassium 4.6 mmol/L (3.5-5.1); Sodium 142 mmol/L (135-145); eGFR > 60.00
[2024-12-08 05:14] LABS: Glucose - Point of Care 101 mg/dl (70-99)
[2024-12-08 05:49] LABS: Platelet Count 82 10^3/uL (130-400)
[2024-12-08] MEDS: TYLENOL 1000 MG PO ×3 (06:09→21:03)
--- NOTE | 2024-12-08 06:58 | W.PN.CT ---
Today's Communication / Plan
-
-pod #1
-no significant issues overnight
-kept SBP 90-[address] Juarez
-got 2 pRBCs and 1L of LR postop
-CI 2.96, CO 5.07, mvO 66.9. Drips: Dobut 3, Levo 7, Vaso 0.02, Insulin
-CT outputs: 2 meds 105/265, L pleur 28/70 in 12/24 hrs
-maintain Lawrence (pt straight caths at home for neurogenic bladder, hx spina bifida)
-maintain swan and a-line while on pressors/inotrops- holding BB and Amio
-maintain pw
-encourage IS, OOB as tolerated
Assessment / Plan
-
- s/p aortic valve replacement #23 mm Inspiris Resilia, mitral valve replacement #29 mm Mitris Resilia (chordal sparing), CABG x 1 [SVG to distal RCA], modified left atrial maze [encompass clamp with RF ablation] and left atrial appendage exclusion
[#35 mm device]; Extensive debridement of the mitral annulus and aortic annulus using an ultrasonic debrider by Dr. Juarez on 12/07/24, pod #1
- Intraop DANIEL: EF�55%, AV 14/7mmHg, MV 2/1mmHg, no residual lumen s/p clip, mild TR
- brief intra-op AF, postop in SR w/ new 1st AVB, frequent PACs
- Mixed pathology mitral valve insufficiency, severe, type IIIb and II
- Severe aortic valve stenosis with a mean gradient of 55 on DANIEL
- T2DM (A1C 6.1) with L 5th toe ulcer
- Hypertension
- Hyperlipidemia
- Osteoporosis
- Epidural abscess
- History of alcohol abuse
- Moderate left subclavian stenosis
- Spina bifida
- Neurogenic bladder, self-caths at home
- b/l THR
- Acute postop blood loss anemia - s/p 2 pRBCs
- Acute postop thrombocytopenia
- Acute postop atelectasis
- Acute postop hypovolemia with subsequent hypervolemia
- Suspect acute postop pericarditis
Discussed patient care with: Nursing and Care Team
Subjective
-
Date of Service: December 08, 2024
Objective Data
-
PT 18.8 Sec (11.4-14.6) H 12/07/24 12:23
INR 1.52 12/07/24 12:23
APTT 36.2 Sec (23.4-35.0) H 12/07/24 12:23
Vital Signs
Vital Signs
Temp Pulse Resp BP Pulse Ox
98.6 F 90 14 111/50 98
12/08/24 00:00 12/08/24 00:30 12/08/24 00:30 12/08/24 00:00 12/08/24 00:30
CT Intake/Output/Weight
12/07/24 12/07/24 12/08/24
06:59 18:59 06:59
Intake Total 1324.3 / 2034.0 709.7 / 2034.0
Output Total 932 / 1432 500 / 1432
Balance 392.3 / 602.0 209.7 / 602.0
SaO2: 98
Physical Exam
-
General: Awake and AOx3
Cardiovascular: Regular rate & rhythm, No Murmurs and No Rub
Respiratory: Decreased Breath Sounds
Sternum: Stable
Incision: Clean, Dry and Intact
Extremities: No Edema
Abdomen: soft, nontender, nondistended, + decreased bowel sounds
Data Reviewed
-
Lab Results: Results Reviewed
Medications: Active Meds Reviewed
Chest X-Ray: Report Reviewed and Image Reviewed
ECG: Report Reviewed and Image Reviewed
[2024-12-08 07:12] LABS: Glucose - Point of Care 94 mg/dl (70-99)
--- NOTE | 2024-12-08 07:39 | W.PN.ANS.POP ---
Anesthesia Post Operative
- Anesthesia Post Op Note
Vital Signs Stable-See Nursing Note: Yes
Airway Patent: Yes
Adequate Pain Control: Yes
Change in Mental Status: No
Current Postoperative Nausea & Vomiting: No
Anesthesia Complications: No
General Anesthetic Recall: No
Unplanned Admission: No
Post Op Hydration Adequate: Yes
--- NOTE | 2024-12-08 07:48 | W.PN.INTV ---
Today's Communication / Plan
Recommendations
Remains on pressors, wean per CT surgery
Insulin drip continues
Pain control
Lawrence catheter in place, history of spina bifida noted
Chest x-ray unremarkable
Hemoglobin being followed, transfuse per CT surgery
Assessment
-
74-year-old female with progressive shortness of breath found to have valve disease and single-vessel coronary disease, status post aortic and mitral bioprosthetic valve replacement, single bypass with left lower extremity harvest 12/07/2024
S/p aortic valve, mitral valve repair with bioprosthesis, 12/07/2024
CABg x 1
Postoperative anemia
Postoperative hypotension requiring pressors
Atrial fibrillation
Conditions present prior to admission
Hypertension/hyperlipidemia
History of diabetes
History of epidural abscess
Moderate alcohol use
Distant tobacco history, quit 2006
Plan/recommendations
At this time, patient remains critically ill, on dobutamine, norepinephrine, vasopressin
Postoperative valvular repair with bioprosthesis aortic and mitral valve, bypass surgery x 1
Minimal chest tube drainage at this time
Postoperative hemoglobin 8.2, received 2 units of blood
Hemoglobin now 9.2
Chest x-ray with no acute findings, mild left basilar atelectasis
Postoperative EKG sinus rhythm
Moving forward, continue with CT surgery management
Follow hemoglobin
Blood products per CT surgery
Chest tube drainage, chest tube management per CT surgery
Atrial fibrillation history noted. Left atrial appendage clip completed
Postoperative DANIEL revealed no paravalvular leak and normal leaflet excursion and normal ventricular function
SGC in place. PAD 16, right atrial pressure 9
Wean pressors as able
Follow blood sugars
History of spina bifida, self-catheterization at home
Lawrence catheter per CT surgery
Pain control, out of bed to chair as able
Reviewed with critical care nursing
TCCT 31 min
Subjective Dataa
Subjective Data
Date of Service:
Date of Service: December 08, 2024
Subjective:
Patient overall appears to be comfortable. Positive fluid balance noted. Remains fatigued. Denies nausea. Complaining of splinting, incisional discomfort. Extubated without difficulty. Required transfusion, 2 units postoperatively. Remains on
dobutamine, norepinephrine, vasopressin, insulin, remains critically ill
Objective Data
Data Reviewed
Vital Signs / I&O / Oxygen:
Vital Signs
Temp Pulse Resp BP Pulse Ox
98.8 F 89 20 102/53 96
12/08/24 07:00 12/08/24 07:00 12/08/24 07:00 12/08/24 07:00 12/08/24 07:00
Intake and Output
12/07/24 12/08/24 12/09/24
06:59 06:59 06:59
Intake Total 2617.4 / 2677.4 60.0 / 60.0
Output Total 1894.5 / 1939.5 45 / 45
Balance 722.9 / 737.9 15.0 / 15.0
SaO2 [SIMV] 97
SaO2 96
Nasal Cannula flow liters per 4
minute
Physical Exam
General: Comfortable and Other (IJ, A-line, chest tube)
HEENT: Normocephalic and Anicteric
Cardiovascular: S1-S2, Regular Rhythm, Murmur (n) and Rub (n)
Respiratory: Wheeze (n), Crackles (n), Rhonchi (n) and Non-Labored Respirations
GI: Soft, Non Distended and Non Tender
Neurology: Awake, Alert and No Motor Deficits (Moves extremities)
Skin: Good Color
Labs/Micro/Reports
Lab Data
12/08/24 04:18
12/08/24 04:18
Laboratory Results
12/07/24 12/07/24 12/07/24
12:23 12:53 16:39
PT 18.8 H
INR 1.52
APTT 36.2 H
pH 7.50 H 7.46 H 7.33 L
pCO2 34 36 H 47 H
pO2 167 H 140 H 122 H
HCO3 26.5 25.6 24.8
O2 Delivery Level vent
12/07/24 12/08/24
19:41 00:10
PT
INR
APTT
pH 7.36 7.35
pCO2 46 H 47 H
pO2 94 114 H
HCO3 26.0 25.9
O2 Delivery Level
Microbiology
12/06/24 12:38 Nose MRSA Screen - Final
No Methicillin Resistant Staphylococcus aureus isolated.
[2024-12-08 07:58] LABS: Glucose - Point of Care 102 mg/dl (70-99)
--- NOTE | 2024-12-08 08:00 | PTCARENOTE ---
Assumed care of patient from security shift supervisor RN. AAO x 3. Very hard of hearing. SR on monitor. Epicardial wires insulated. RT IJ cordis with swan at 50 cm. Rt radial A line transducing Lines leveled recalibrated and flushed. Drips infusing as
follows: insulin per glycemic, Levophed, vasopressin, dobutamine. see flow sheet for totals/titrations. 4 L NC 95 %. Chest tubes x 3 to - 20 cm suction. No air leak or crepitus noted. Abdomen distended, soft, hypoactive bowel sounds with
intermittent nausea . Lawrence intact with herberth urine. Surgical sites c,d,i. Pulses weakly palpable. Plan for day discussed.
[2024-12-08] MEDS: NOVOLOG FLEXPEN SC ×3 (08:26→16:17)
[2024-12-08] MEDS: LIDOCAINE 4% PATCH 1 PATCH TOPICAL (08:36)
[2024-12-08] MEDS: LOW STRENGTH ASPIRIN 81 MG PO (08:36)
[2024-12-08] MEDS: SENOKOT-S 1 TABLET PO ×2 (08:36→20:53)
[2024-12-08] MEDS: PLAVIX 75 MG PO (08:37)
[2024-12-08] MEDS: PROTONIX 40 MG PO (08:37)
[2024-12-08] MEDS: BACTROBAN 2% OINTMENT 1 APPLIC NASAL ×2 (08:37→20:52)
[2024-12-08] MEDS: MAGNESIUM OXIDE 500 MG PO ×2 (08:37→20:53)
[2024-12-08] MEDS: NEURONTIN 100 MG PO ×3 (08:37→21:03)
--- NOTE | 2024-12-08 08:43 | PN.DE.MGMTRT ---
Insulin Management
- -
12/08/2024 Diabetes Management Consult
Patient admitted 12/07 for CABG x 1 and multiple valve repair. PMH diabetes, HTN, HLD, microalbumin, spina bifida with neurogenic bladder, osteopenia. Prior to admission was taking metformin 500 mg BID. A1C 6.1%, cr .7, eGFR > 60.
POD 1 patient is awake alert and oriented able to discuss diabetes care. EXTREMELY [place]UP. States she has had diabetes 10+ years is followed by her primary care provider for ongoing diabetes care. States she has a glucose monitor and supplies.
Glucose stable requiring .7 to 3.5 units of insulin per hour.
Will continue critical care glycemic protocol insulin infusion per protocol and assess for readiness to transition 12/09.
Discussed with nurse and CV PA & ROTARY DRILLER PROSPECTING
Will follow
Diabetes History
- -
Type of Diabetes: 2
Pre-Admission Diabetes Regimen
12/07/24 12/08/24
12:23 04:18
Creatinine 0.6 0.7
Lab Results
Hemoglobin A1c 6.1 % (4.0-5.6) H 12/06/24 12:38
Insulin Pump Settings
IP Diabetes Regimen
12/07/24 12/07/24 12/07/24
12:23 13:06 14:15
Glucose 120 H
POC Glucose 133 H 131 H 158 H
12/07/24 12/07/24 12/07/24
15:01 16:07 16:58
Glucose
POC Glucose 133 H 113 H 96
12/07/24 12/07/24 12/07/24
18:49 21:01 23:00
Glucose
POC Glucose 118 H 114 H 100 H
12/08/24 12/08/24 12/08/24
01:08 03:02 04:18
Glucose 101 H
POC Glucose 93 110 H
12/08/24 12/08/24 12/08/24
05:11 07:10 07:57
Glucose
POC Glucose 101 H 94 102 H
Meal type: Lunch
Amount consumed: 0
Patient Education
--- NOTE | 2024-12-08 09:00 | PTCARENOTE ---
Pt vominted approx 50 ml dark green emesis after taking am medications. Zofran administered. Will monitor
[2024-12-08 09:03] LABS: Glucose - Point of Care 110 mg/dl (70-99)
[2024-12-08] MEDS: ALBUMIN 5% 250 IV (09:26)
--- NOTE | 2024-12-08 09:35 | W.PN.CD ---
Today's Communication / Plan
-
Maintain post operative course.
Wean pressors/inotropes.
Not ready for diuresis.
Ambulate when appropriate
Encourage incentive spirometry.
Impression / Plan
-
Impression/Plan: 74 y/o female with spina bifida requiring straight catheterization, NIDDM, HTN< HLD, EtOH dependence, moderate and severe, symptomatic mitral valve regurgitation and CAD in the RCA admitted for elective AVR/MVr/CABG.
#Severe mitral valve regurgitation/moderate aortic valve stenosis
-Chronic, progressive.
-S/P #23 Gonzalez Inspiris Resilia SAVR (serial #[id number]) with Dr. Juarez, 12/07/2024.
-S/P #29 Gonzalez Mitris Resilia SMVR (serial #[id number]) with Dr. Juarez, 12/07/2024.
-Brief intraoperative AF, s/p LAAE with #35 AtriClip (serial #[id number]).
-Wean pressors/inotropes for a MAP > 65 mmHg, CI > 1.8 L/min/m2.
-Not quite ready for diuresis given low SVR, low dBP and current pressor requirement.
-Pain/chest tube management per CTS.
#CAD
-Chronic, progressive.
-S/P 1V CABG (SVG to RCA) with Dr. Juarez, 12/07/2024.
-Post operative management as above.
-Continue aspirin, atorvastatin, clopidogrel.
#HTN
-Chronic, stable.
-Reintroduce antihypertensive meds when BP will permit.
#HLD
-Chronic, stable.
-Continue atorvastatin.
-Goal LDL < 55.
#NIDDM2
-Chronic.
Subjective/Interval History:
Surgery yesterday.
Extubated yesterday afternoon.
Patient requiring dobutamine, norepinephrine and vasopressin.
Transfused one unit of PRBC's overnight.
Weight is up 5.1 kg from admission weight.
SaO2 96% on 4LNC.
DATA:
AVR/MVR, 12/07/2024:
Procedure(s) Performed:
1. Standard sternotomy with aortic and bicaval cannulation.
2. Modified left atrial maze [encompass clamp with RF ablation] and left atrial appendage exclusion [#35 Atriclip, serial #[id number]].
3. Chordal sparing mitral valve replacement [relocation of anterior leaflet to the posterior annulus] using a #29 Gonzalez mitris Resilia mitral valve, serial #[id number].
4. Extensive debridement of the mitral annulus and aortic annulus using an ultrasonic debrider, modifier 22 for added complexity and time.
5. Surgical aortic valve replacement [#23 Gonzalez Inspiris Resilia aortic valve, serial #[id number]].
6. CABG x 1 [Ao to RSVG to distal RCA], endoscopic vein harvesting of the right lower and left lower extremity.
7. Placement of temporary atrial and ventricular pacing wires.
8. Transesophageal echocardiography.
CTA Chest/Abdomen/Pelvis, 11/30/2024:
IMPRESSION:
1. Coronary and aortic advanced atherosclerotic changes. Negative for aortic aneurysmal dilation. Stenosis of left subclavian artery.
2. No acute pulmonary process.
3. No acute intra-abdominal process.
DANIEL. 11/18/2024:
CONCLUSIONS
Normal biventricular size and systolic function without regional wall motion
abnormality. LVEF 60-65%.
Severe eccentric mitral regurgitation due to P3 flail.
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
of the aortic valve.
At least mild aortic stenosis.
No prior study available for comparison.
Cardiac Catheterization, 11/18/2024:
CONCLUSIONS:
1. Right dominant circulation with dense external calcification of the left circulation but only minor luminal irregularities within the LAD and a calcified, 90% lesion in the proximal RCA followed by a 60% lesion in the proximal RCA.
2. Moderately elevated filling pressures (PCWP = 21 mmHg at 73.3 kg) with a large V wave (45 mmHg) consistent with known history of severe mitral valve regurgitation.
3. 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
4. Moderate aortic valve stenosis and severe, eccentric mitral regurgitation by echocardiography.
5. Calcific, atherosclerotic plaque of the right subclavian artery without significant pressure degradation on pullback.
6. Mild postcapillary pulmonary hypertension (mean PA = 31 mmHg, PCWP = 21 mmHg, cardiac output = 4.0 L/min, PVR = 2.5 Alvarado units), WHO group 2.
Physical Exam
Vital Signs/Labs
Vital Signs
Temp Pulse Resp BP Pulse Ox
37.2 C 73 18 114/49 95
12/08/24 08:00 12/08/24 08:15 12/08/24 08:15 12/08/24 08:00 12/08/24 08:15
12/06/24 12/07/24 12/08/24
11:59 11:59 11:59
Actual Weight 70.7 kg 75.8 kg
12/08/24 04:18
12/08/24 04:18
PT 18.8 Sec (11.4-14.6) H 12/07/24 12:23
INR 1.52 12/07/24 12:23
APTT 36.2 Sec (23.4-35.0) H 12/07/24 12:23
Magnesium 1.8 mg/dl (1.6-2.3) 12/08/24 04:18
Physical Exam
Constitutional: No acute distress and Comfortable
EENT: Anicteric and Moist mucous membranes
Cardiovascular: Rhythm & rate is regular, JVD pressure is normal, S1S2 is normal and Murmur/rub/gallop absent
Respiratory: Respiratory effort normal and Other (Decreased throughout.)
GI: Soft, Distention absent, Flat, Non tender and Normal bowel sounds
Neuro/Psych: AO x 3
Data Reviewed
-
Date of Service: December 08, 2024
Medical Decision Making: Reviewed Test Results, Independent Historian Assessment and Test Interpretation
EKG: Tracing Personally Visualized and interpreted and Report Reviewed by me
Echo: Report Reviewed by me
X-Ray/CT/US/MRI/NUC/PET: Image Personally Visualized and interpreted and Report Reviewed by me
Medical Tests (PFT, Pathology etc): Image Personally Visualized and interpreted and Report Reviewed by me
Labs: Labs Reviewed by me
Old Records: Reviewed
[2024-12-08] MEDS: REGLAN 10 MG IV (09:56)
[2024-12-08 10:01] LABS: Glucose - Point of Care 105 mg/dl (70-99)
--- NOTE | 2024-12-08 10:25 | CM ---
Chart reviewed. Patient is independent of ADLS, lives alone in a 2 STH, 1st level set up, 1 NEERAJ, ambulates with a SPC. Patient with 3 supportive daughter and a brother who lives close. Plan is for the patient to return home with CT Transitional
RN. CARLI to follow
--- NOTE | 2024-12-08 10:42 | PTCARENOTE ---
Attempted to eat clear liquid breakfast. Pt however vomited large amount of dark green bilious fluid again. Order obtained for Reglan will administer and monitor.
--- NOTE | 2024-12-08 10:43 | PTCARENOTE ---
Plural chest tube removed per order. Pt tolerated w/o issue. Resting in bed after.
[2024-12-08 11:02] LABS: Glucose - Point of Care 110 mg/dl (70-99)
[2024-12-08] MEDS: NSS IV (11:50)
--- NOTE | 2024-12-08 11:51 | PTCARENOTE ---
Assist x 2 oob to chair. Dizziness reported initially, resolved w/o intervention. No dumping noted from chest tubes. VSS. Assessment otherwise unchanged from other.
[2024-12-08] MEDS: NOVOLIN R INSULIN INFUSION 100 IV (11:59)
[2024-12-08 13:17] LABS: Glucose - Point of Care 100 mg/dl (70-99)
[2024-12-08] MEDS: FERRLECIT 110 MG IV (14:18)
[2024-12-08 15:06] LABS: Glucose - Point of Care 102 mg/dl (70-99)
--- NOTE | 2024-12-08 15:35 | PTCARENOTE ---
Tolerated sitting oob for 3 hours. Levophed weaned off. VSS. Insulin drip maintained. Assessment otherwise unchanged from prior.
[2024-12-08] MEDS: DOBUTREX 500 MG 250 IV (17:02)
[2024-12-08 17:07] LABS: Glucose - Point of Care 131 mg/dl (70-99)
[2024-12-08 18:49] LABS: Glucose - Point of Care 113 mg/dl (70-99)
[2024-12-08 19:22] LABS: Hepatitis C Antibody Negative (Negative)
--- NOTE | 2024-12-08 20:00 | PTCARENOTE ---
Resumed care of the patient at 1900. AOx3, drowsy, remains extremely LITTLE TRAVERSE R>L. SR on CM, heart tones audible, +1-2 nonpitting edema in axillae, AV wires tied to pacer box powered on, see worklist for settings; pulses weakly palpable. Lungs dim
throughout, CT x2, 3LNC increased to 4 LPM for SpO2 89%. Abdomen obese, hypoactive, poor appetite, reporting passing flatus. Lawrence catheter in place draining clear yellow urine. All surgical sites stable and intact. RIJ cordis/swan at 50, R radial
art line, PIV; all applicable lines leveled and calibrated. POC discussed, patient in agreement, call lyons within reach, assessment of needs ongoing.
[2024-12-08] MEDS: REMOVE LIDOCAINE PATCH 1 PATCH REMOVE (20:53)
[2024-12-08 21:02] LABS: Glucose - Point of Care 194 mg/dl (70-99)
[2024-12-08] MEDS: LIPITOR 80 MG PO (21:03)
[2024-12-08 22:02] LABS: Glucose - Point of Care 174 mg/dl (70-99)
[2024-12-09] VITALS (25 sets, daily range): BP systolic 100–130; BP diastolic 40–62; PULSE 105; O2SAT 95–96; BMI 31.0
--- NOTE | 2024-12-09 | PTCARENOTE ---
Levo and vaso off briefly for hypertension. Patient then became hypotensive, levo initially restarted and Vaso added back, CVPA aware. Assessment otherwise unchanged.
[2024-12-09 00:14] LABS: Glucose - Point of Care 152 mg/dl (70-99)
[2024-12-09 02:05] LABS: Glucose - Point of Care 133 mg/dl (70-99)
[2024-12-09 03:07] LABS: Glucose - Point of Care 106 mg/dl (70-99)
--- NOTE | 2024-12-09 04:00 | PTCARENOTE ---
No changes in assessment, levo, vaso, dobut, and insulin continued per protocol. Patient sleeping between care. Call lyons within reach.
[2024-12-09 04:07] LABS: Glucose - Point of Care 90 mg/dl (70-99)
[2024-12-09 04:36] LABS: Hematocrit 23.2 % (37.0-47.0); Hemoglobin 7.8 g/dL (12.0-16.0); Mean Corp Hgb Conc. 33.6 g/dL (33.0-37.0); Mean Corpuscular Volume 86.9 fL (81.0-99.0); Platelet Count 57 10^3/uL (130-400); Red Cell Dist. Width 14.9 % (11.5-14.5)
[2024-12-09 04:56] LABS: Blood Urea Nitrogen 21 mg/dl (7-17); Calcium 8.2 mg/dl (8.4-10.2); Carbon Dioxide 28 mmol/L (22-30); Chloride 108 mmol/L (98-107); Estimated Creatinine Clearance 78 ml/min; Glucose 82 mg/dl (70-99); Magnesium 1.8 mg/dl (1.6-2.3); Potassium 3.8 mmol/L (3.5-5.1); Sodium 138 mmol/L (135-145); eGFR > 60.00
[2024-12-09 05:04] LABS: Glucose - Point of Care 101 mg/dl (70-99)
[2024-12-09] MEDS: TYLENOL 1000 MG PO ×3 (05:07→21:13)
--- NOTE | 2024-12-09 06:01 | W.PN.CT ---
Today's Communication / Plan
-
-pod #2
-no issues overnight
-CI 3.81, CO 6.52, SVR 773. Drips: Dobut 3, Levo is off, Vaso 0.02, Insulin
-CT outputs: 2 meds 110/155 in 12/24 hrs
-wt is up from 155 to 167 lbs. Hg 7.8 today from 9.2 (? dilutional). Consider diuresis
-wean off Dobut and Vaso as tolerated
-encourage IS, OOB
Assessment / Plan
-
- s/p aortic valve replacement #23 mm Inspiris Resilia, mitral valve replacement #29 mm Mitris Resilia (chordal sparing), CABG x 1 [SVG to distal RCA], modified left atrial maze [encompass clamp with RF ablation] and left atrial appendage exclusion
[#35 mm device]; Extensive debridement of the mitral annulus and aortic annulus using an ultrasonic debrider by Dr. Juarez on 12/07/24, pod #2
- Intraop DANIEL: EF�55%, AV 14/7mmHg, MV 2/1mmHg, no residual lumen s/p clip, mild TR
- brief intra-op AF, postop in SR w/ new 1st AVB, frequent PACs
- Mixed pathology mitral valve insufficiency, severe, type IIIb and II
- Severe aortic valve stenosis with a mean gradient of 55 on DANIEL
- T2DM (A1C 6.1) with L 5th toe ulcer
- Hypertension
- Hyperlipidemia
- Osteoporosis
- Epidural abscess
- History of alcohol abuse
- Moderate left subclavian stenosis
- Spina bifida
- Neurogenic bladder, self-caths at home
- b/l THR
- Acute postop blood loss anemia - s/p 2 pRBCs
- Acute postop thrombocytopenia
- Acute postop atelectasis
- Acute postop hypovolemia with subsequent hypervolemia
- Suspect acute postop pericarditis
Discussed patient care with: Nursing and Care Team
Subjective
-
Date of Service: December 09, 2024
Objective Data
-
Lab Results
12/09/24 04:06
12/09/24 04:06
PT 18.8 Sec (11.4-14.6) H 12/07/24 12:23
INR 1.52 12/07/24 12:23
APTT 36.2 Sec (23.4-35.0) H 12/07/24 12:23
Vital Signs
Vital Signs
Temp Pulse Resp BP Pulse Ox
99.5 F 98 19 117/50 97
12/09/24 05:00 12/09/24 05:00 12/09/24 05:00 12/09/24 05:00 12/09/24 05:00
CT Intake/Output/Weight
12/08/24 12/08/24 12/09/24
06:59 18:59 06:59
Intake Total 1293.1 / 2677.4 2096.7 / 2843.7 747.0 / 2843.7
Output Total 962.5 / 1939.5 415 / 1035 620 / 1035
Balance 330.6 / 737.9 1681.7 / 1808.7 127.0 / 1808.7
SaO2: 97
Physical Exam
-
General: Awake and AOx3
Cardiovascular: Regular rate & rhythm, No Murmurs and No Rub
Respiratory: Decreased Breath Sounds
Sternum: Stable
Incision: Clean, Dry and Intact
Extremities: Edema +1
Abdomen: soft, nontender, nondistended, + bowel sounds
Data Reviewed
-
Lab Results: Results Reviewed
Medications: Active Meds Reviewed
Chest X-Ray: Report Reviewed and Image Reviewed
ECG: Report Reviewed and Image Reviewed
[2024-12-09 06:13] LABS: Glucose - Point of Care 94 mg/dl (70-99)
--- NOTE | 2024-12-09 07:07 | W.PN.CD ---
Today's Communication / Plan
-
Furosemide 40 mg IV x1 and monitor.
D/C dobutamine.
Titrate peripheral vasopressors for low SVR to maintain MAP > 65 mmHg.
Ambulate when appropriate.
Encourage incentive spirometry.
Low threshold for heme consult.
Impression / Plan
-
Impression/Plan: 74 y/o female with spina bifida requiring straight catheterization, NIDDM, HTN< HLD, EtOH dependence, moderate and severe, symptomatic mitral valve regurgitation and CAD in the RCA admitted for elective AVR/MVr/CABG.
#Severe mitral valve regurgitation/moderate aortic valve stenosis
-Chronic, progressive.
-S/P #23 Gonzalez Inspiris Resilia SAVR (serial #[id number]) with Dr. Juarez, 12/07/2024.
-S/P #29 Gonzalez Mitris Resilia SMVR (serial #[id number]) with Dr. Juarez, 12/07/2024.
-Brief intraoperative AF, s/p LAAE with #35 AtriClip (serial #[id number]).
-Currently off of norepinphrine.
-D/C dobutamine and maintain vasopressin. Uptitrate peripheral vasoconstrictors for low SVR as needed to maintain MAP > 65 mmHg.
-Weight up significantly with persistent O2 requirement.
-Furosemide 40 mg IV x1 and monitor.
-Encourage incentive spirometry.
-Ambulate when possible.
-Pain/chest tube management per CTS.
#CAD
-Chronic, progressive.
-S/P 1V CABG (SVG to RCA) with Dr. Juarez, 12/07/2024.
-Post operative management as above.
-Continue aspirin, atorvastatin, clopidogrel.
#Heme
-Anemia appears relatively acute.
-Thrombocytopenia is acute.
-Based on weight, there is a component of dilution.
-Monitor with diuresis.
-DDx does include HIT (among other things). Avoid further heparin dosing.
-If anemia/thrombocytopenia does not improve with hemoconcentration, low threshold for heme consult.
#HTN
-Chronic, stable.
-Reintroduce antihypertensive meds when BP will permit.
#HLD
-Chronic, stable.
-Continue atorvastatin.
-Goal LDL < 55.
#NIDDM2
-Chronic.
Subjective/Interval History:
Weight up an additional 0.9 kg.
Norepinephrine weaned off, remains on dobutamine and vasopressin.
CI > 3.5, SVR 698.
SaO2 = 96% on 4LNC.
Hbg down (7.8 <-- 9.2).
Platelets 57k.
DATA:
AVR/MVR, 12/07/2024:
Procedure(s) Performed:
1. Standard sternotomy with aortic and bicaval cannulation.
2. Modified left atrial maze [encompass clamp with RF ablation] and left atrial appendage exclusion [#35 Atriclip, serial #[id number]].
3. Chordal sparing mitral valve replacement [relocation of anterior leaflet to the posterior annulus] using a #29 Gonzalez mitris Resilia mitral valve, serial #[id number].
4. Extensive debridement of the mitral annulus and aortic annulus using an ultrasonic debrider, modifier 22 for added complexity and time.
5. Surgical aortic valve replacement [#23 Gonzalez Inspiris Resilia aortic valve, serial #[id number]].
6. CABG x 1 [Ao to RSVG to distal RCA], endoscopic vein harvesting of the right lower and left lower extremity.
7. Placement of temporary atrial and ventricular pacing wires.
8. Transesophageal echocardiography.
CTA Chest/Abdomen/Pelvis, 11/30/2024:
IMPRESSION:
1. Coronary and aortic advanced atherosclerotic changes. Negative for aortic aneurysmal dilation. Stenosis of left subclavian artery.
2. No acute pulmonary process.
3. No acute intra-abdominal process.
DANIEL. 11/18/2024:
CONCLUSIONS
Normal biventricular size and systolic function without regional wall motion
abnormality. LVEF 60-65%.
Severe eccentric mitral regurgitation due to P3 flail.
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
of the aortic valve.
At least mild aortic stenosis.
No prior study available for comparison.
Cardiac Catheterization, 11/18/2024:
CONCLUSIONS:
1. Right dominant circulation with dense external calcification of the left circulation but only minor luminal irregularities within the LAD and a calcified, 90% lesion in the proximal RCA followed by a 60% lesion in the proximal RCA.
2. Moderately elevated filling pressures (PCWP = 21 mmHg at 73.3 kg) with a large V wave (45 mmHg) consistent with known history of severe mitral valve regurgitation.
3. 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
4. Moderate aortic valve stenosis and severe, eccentric mitral regurgitation by echocardiography.
5. Calcific, atherosclerotic plaque of the right subclavian artery without significant pressure degradation on pullback.
6. Mild postcapillary pulmonary hypertension (mean PA = 31 mmHg, PCWP = 21 mmHg, cardiac output = 4.0 L/min, PVR = 2.5 Alvarado units), WHO group 2.
Physical Exam
Vital Signs/Labs
Vital Signs
Temp Pulse Resp BP Pulse Ox
37.4 C 85 19 104/47 96
12/09/24 06:00 12/09/24 06:30 12/09/24 06:30 12/09/24 06:02 12/09/24 06:30
12/07/24 12/08/24 12/09/24
11:59 11:59 11:59
Actual Weight 70.7 kg 75.8 kg 76.7 kg
12/09/24 04:06
12/09/24 04:06
PT 18.8 Sec (11.4-14.6) H 12/07/24 12:23
INR 1.52 12/07/24 12:23
APTT 36.2 Sec (23.4-35.0) H 12/07/24 12:23
Magnesium 1.8 mg/dl (1.6-2.3) 12/09/24 04:06
Physical Exam
Constitutional: No acute distress and Comfortable
EENT: Anicteric and Moist mucous membranes
Cardiovascular: Rhythm & rate is regular, JVD present, Systolic murmur present, S1S2 is normal and Murmur/rub/gallop absent
Respiratory: Respiratory effort normal and Other (Decreased at the bases.)
GI: Soft, Distention absent, Flat, Non tender and Normal bowel sounds
Neuro/Psych: AO x 3
Data Reviewed
-
Date of Service: December 09, 2024
Medical Decision Making: Reviewed Test Results, Independent Historian Assessment and Test Interpretation
EKG: Tracing Personally Visualized and interpreted and Report Reviewed by me
Echo: Tracing Personally Visualized and interpreted and Report Reviewed by me
X-Ray/CT/US/MRI/NUC/PET: Image Personally Visualized and interpreted and Report Reviewed by me
Medical Tests (PFT, Pathology etc): Image Personally Visualized and interpreted and Report Reviewed by me
Labs: Labs Reviewed by me
[2024-12-09 07:37] LABS: Glucose - Point of Care 107 mg/dl (70-99)
--- NOTE | 2024-12-09 07:44 | PN.DE.MGMTRT ---
Insulin Management
- -
12/09/2024: Diabetes Management Follow
Patient admitted 12/07 for CABG x 1 and multiple valve repair. PMH diabetes, HTN, HLD, microalbumin, spina bifida with neurogenic bladder, osteopenia. Prior to admission was taking metformin 500 mg BID. States she has had diabetes 10+ years is
followed by her primary care provider for ongoing diabetes care. States she has a glucose monitor and supplies at home. A1C 6.1%, Cr 0.7, eGFR > 60.
Patient awake, alert and oriented, sitting up in chair, EXTREMELY [place], able to discuss diabetes care.
POD # 2 s/p AVR, CABG x1, doing well. Glucose stable 90 to 152, requiring 0.6 to 2.6 units of insulin per hour.
Will transition off critical care glycemic protocol insulin infusion to Metformin 500mg BID and Farxiga 10 mg daily. Will ask CM to verify cost for SGLT2
Discussed with nurse and CV PA & CONTROL ROOM AGENT. Will cont to follow
Diabetes History
- -
Type of Diabetes: 2
Pre-Admission Diabetes Regimen
12/09/24
04:06
Creatinine 0.6
Lab Results
Hemoglobin A1c 6.1 % (4.0-5.6) H 12/06/24 12:38
Insulin Pump Settings
IP Diabetes Regimen
12/08/24 12/08/24 12/08/24
07:57 09:01 09:59
Glucose
POC Glucose 102 H 110 H 105 H
12/08/24 12/08/24 12/08/24
11:01 13:06 15:04
Glucose
POC Glucose 110 H 100 H 102 H
12/08/24 12/08/24 12/08/24
17:04 18:46 21:01
Glucose
POC Glucose 131 H 113 H 194 H
12/08/24 12/09/24 12/09/24
22:00 00:09 02:04
Glucose
POC Glucose 174 H 152 H 133 H
12/09/24 12/09/24 12/09/24
03:05 04:04 04:06
Glucose 82
POC Glucose 106 H 90
12/09/24 12/09/24 12/09/24
05:03 06:11 07:35
Glucose
POC Glucose 101 H 94 107 H
Meal type: Dinner
Meal type: Breakfast
Amount consumed: 0
Amount consumed: 10%
Patient Education
--- NOTE | 2024-12-09 07:50 | W.PN.INTV ---
Today's Communication / Plan
Recommendations
Continue to wean pressors per CT surgery
Pain control
Follow hemoglobin, platelets
Transfusion per CT surgery
Assessment
-
74-year-old female with progressive shortness of breath found to have valve disease and single-vessel coronary disease, status post aortic and mitral bioprosthetic valve replacement, single bypass with left lower extremity harvest 12/07/2024
S/p aortic valve, mitral valve repair with bioprosthesis, 12/07/2024
CABg x 1
Postoperative anemia
Postoperative hypotension requiring pressors
Atrial fibrillation
Conditions present prior to admission
Hypertension/hyperlipidemia
History of diabetes
History of epidural abscess
Moderate alcohol use
Distant tobacco history, quit 2006
Plan/recommendations
At this time, patient remains critically ill, on pressors being weaned
Blood products noted, transfusion noted
Postoperative valvular repair with bioprosthesis aortic and mitral valve, bypass surgery x 1
Minimal chest tube drainage at this time
Chest x-ray with no acute findings, mild left basilar atelectasis
Moving forward, continue with CT surgery management
Follow hemoglobin
Blood products per CT surgery
Chest tube drainage, chest tube management per CT surgery
Atrial fibrillation history noted. Left atrial appendage clip completed
Postoperative DANIEL revealed no paravalvular leak and normal leaflet excursion and normal ventricular function
Wean pressors as able
Follow blood sugars
History of spina bifida, self-catheterization at home
Lawrence catheter per CT surgery
Platelets noted, follow. 57
Pain control, out of bed to chair as able
Reviewed with critical care nursing
Subjective Dataa
Subjective Data
Date of Service:
Date of Service: December 09, 2024
Subjective:
Overall, patient improved. She has some mild incisional discomfort but denies any abdominal pain. Mild nausea earlier, now resolved. Family at bedside
Objective Data
Data Reviewed
Vital Signs / I&O / Oxygen:
Vital Signs
Temp Pulse Resp BP Pulse Ox
99.3 F 101 17 114/48 97
12/09/24 07:00 12/09/24 07:45 12/09/24 07:45 12/09/24 07:00 12/09/24 07:30
Intake and Output
12/08/24 12/09/24 12/10/24
06:59 06:59 06:59
Intake Total 2617.4 / 2677.4 2936.7 / 3089.7 153.0 / 153.0
Output Total 1894.5 / 1939.5 1090 / 1120
Balance 722.9 / 737.9 1846.7 / 1969.7 123.0 / 123.0
SaO2 [SIMV] 97
SaO2 97
Nasal Cannula flow liters per 4
minute
Physical Exam
General: Comfortable and Other (IJ, A-line, chest tube)
HEENT: Normocephalic and Anicteric
Cardiovascular: S1-S2, Regular Rhythm, Murmur (n) and Rub (n)
Respiratory: Wheeze (n), Crackles (n), Rhonchi (n) and Non-Labored Respirations
GI: Soft, Non Distended and Non Tender
Neurology: Awake, Alert and No Motor Deficits (Moves extremities)
Skin: Good Color
Labs/Micro/Reports
Lab Data
12/09/24 04:06
12/09/24 04:06
Microbiology
12/07/24 07:15 Urine Urine Culture - Preliminary
Gram negative bacilli
12/06/24 12:38 Nose MRSA Screen - Final
No Methicillin Resistant Staphylococcus aureus isolated.
[2024-12-09] MEDS: VENTOLIN NEBULES 2.5 MG INH (07:58)
--- NOTE | 2024-12-09 08:00 | PTCARENOTE ---
Assumed care of patient from [facility] shift lead RN. AAO x 3 sitting up in the chair. Denies complaint at present. SR/ST on monitor. RT IJ cordis with swan @ 50 cm. RT radial A line transducing. Lines leveled, recalibrated,and flushed. Vasopressin,
dobutamine, and insulin infusing at handoff. See flow sheet for titrations/totals. Epicardial wires insulated. 4 L NC 97%. IS to 500. Chest tubes x 2 to -20 cm suction. No air leak or crepitus noted. Abdomen obese, round, positive bowel
sounds. Passing flatus. Lawrence maintained per order. Charla urine. Lawrence care preformed. Surgical sites well approximated with surgical adhesive. Pulses weakly palpable. Plan for day discussed.
[2024-12-09] MEDS: MAGNESIUM OXIDE 500 MG PO ×2 (08:13→21:13)
[2024-12-09] MEDS: GLUCOPHAGE 1000 MG PO (08:13)
[2024-12-09] MEDS: NEURONTIN 100 MG PO ×3 (08:13→21:13)
[2024-12-09] MEDS: PROTONIX 40 MG PO (08:13)
[2024-12-09] MEDS: SENOKOT-S 1 TABLET PO ×2 (08:13→21:13)
[2024-12-09] MEDS: KCL 40 MEQ PO (08:13)
[2024-12-09] MEDS: BACTROBAN 2% OINTMENT 1 APPLIC NASAL ×2 (08:14→21:14)
[2024-12-09] MEDS: NOVOLOG FLEXPEN 4 UNITS SC (08:14)
[2024-12-09] MEDS: LIDOCAINE 4% PATCH TOPICAL (08:15)
[2024-12-09 10:05] LABS: Glucose - Point of Care 135 mg/dl (70-99)
[2024-12-09] MEDS: FARXIGA 10 MG PO (10:05)
[2024-12-09] MEDS: LASIX 40 MG IV (10:05)
[2024-12-09] MEDS: KCL 20 MEQ PO (10:05)
--- NOTE | 2024-12-09 10:15 | CM ---
Pricing on Farxiga 10mg daily is $554, patient is still in the deductible stage. Once the patient meets her OOP $2000 she will have $0 copay.
Jardance 10 mg for a 30 day supply is $563. Once the patient meets her OOP $2000 she will have a $0 copay
[2024-12-09] MEDS: LANTUS 0.08 UNITS SC (10:19)
--- NOTE | 2024-12-09 11:34 | CM ---
Chart reviewed. Patient is OOB sitting in the chair with brother at bedside. Patient is independent of ADLS, lives alone in a 2 STH, 1st level set up, 1 NEERAJ, ambulates with a SPC also has grab bars in the shower and shower chair. Patient with
3 supportive daughter and brother who lives close to assist when discharged. Plan is for the patient to return home with CT Transitional RN. CM to follow
--- NOTE | 2024-12-09 11:37 | PN.CDI ---
CDI
- -
CDI:
Physician Documentation Request
Admit Date: 12/07/24 05:[address] Surgery,
Please review the following and provide your response in the progress notes.
Clinical Indicators:
The diagnosis of Klebsiella pneumoniae was included in the signed 12/07 UC
- 12/09 CT Surgery 'Spina bifida...Neurogenic bladder, self-caths at home'
- Indwelling catheter placed for surgery
- 12/07 UC with Klebsiella pneumoniae
Please indicate in your progress notes if you are in agreement that the above diagnosis is valid for this patient:
____ - CAUTI is a valid diagnosis (Please include it in your progress notes)
____ - CAUTI is not a valid diagnosis for this patient
____ - CAUTI is not yet confirmed but remains a suspected condition
____ - Other
Use of terms such as suspected, likely, concern for, or probable are acceptable for a diagnosis that is being evaluated, monitored or treated as if it exists and can be coded in the inpatient setting, when documented at the time of discharge.
Thank you,
Adelita Stack RN
CDI Specialist
Please use your independent medical judgment in providing your response.
--- NOTE | 2024-12-09 11:43 | PTCARENOTE ---
1 unit PRBC's transfused, w/o issue. IV lasix administered per order. Vasopressin weaned off. VSS. Assessment unchanged from prior.
--- NOTE | 2024-12-09 11:46 | W.PN.UPDATE ---
Update Note
Progress Note Update
CDI Inquiry: 12/07 UC positive for Klebsiella pneumoniae, suspected to be related to patient need for self-catheterizations due to known PMHx of neurogenic bladder. CAUTI associated to current indwelling catheter is not a valid diagnosis for this
patient due to UA/UC being obtained prior to CVOR. Patient started on Macrobid.
[2024-12-09 11:54] LABS: Glucose - Point of Care 90 mg/dl (70-99)
[2024-12-09] MEDS: NSS IV (12:40)
[2024-12-09] MEDS: MACROBID 100 MG PO ×2 (13:19→21:13)
[2024-12-09] MEDS: FERRLECIT 110 MG IV (13:20)
[2024-12-09] MEDS: GLUCOPHAGE 500 MG PO (17:05)
--- NOTE | 2024-12-09 20:00 | PTCARENOTE ---
Resumed care of the patient. Patient neuro intact, AOx3, [place] at baseline. SR with a 1st degree HB on CM, heart tones audible, trace to +1 edema in upper and lower extremities, AV wires insulated, pulses palpable. Lungs dim throughout, 2LNC SpO2 99%.
Abdomen obese, normoactive, appetite improved, reports passing flatus. Lawrence catheter in place draining clear yellow urine, good response from daytime Lasix dose. Surgical sites remain stable and intact, L groin ecchymotic and tender. RIJ
cordis/swan at 50, R radial art line, PIVx1; all applicable lines leveled, zeroed and calibrated. Patient denies pain at this time, transferred BIB with asstx2, POC discussed, patient in agreement, assessment of needs ongoing, call lyons within
reach.
[2024-12-09] MEDS: REMOVE LIDOCAINE PATCH REMOVE (20:10)
[2024-12-09] MEDS: LIPITOR 80 MG PO (21:13)
[2024-12-09 21:59] LABS: Glucose - Point of Care 142 mg/dl (70-99)
[2024-12-10] VITALS (19 sets, daily range): BP systolic 89–133; BP diastolic 45–77; PULSE 91; O2SAT 92–94; BMI 30.9
[2024-12-10] MEDS: NSS 500 IV (00:22)
--- NOTE | 2024-12-10 01:08 | PTCARENOTE ---
Patient sleeping between care. CHG cloth bath, beltran care. Dobut to 0.5 per CVPA. Care plan ongoing.
--- NOTE | 2024-12-10 04:00 | PTCARENOTE ---
No changes in assessment, patient sleeping between care. Dobut turned off per CVPA. Care plan ongoing.
[2024-12-10 05:03] LABS: Hematocrit 26.1 % (37.0-47.0); Hemoglobin 8.6 g/dL (12.0-16.0); Mean Corp Hgb Conc. 33.0 g/dL (33.0-37.0); Mean Corpuscular Volume 88.5 fL (81.0-99.0); Platelet Count 61 10^3/uL (130-400); Red Cell Dist. Width 14.8 % (11.5-14.5)
[2024-12-10 05:04] LABS: Blood Urea Nitrogen 18 mg/dl (7-17); Calcium 8.6 mg/dl (8.4-10.2); Carbon Dioxide 30 mmol/L (22-30); Chloride 107 mmol/L (98-107); Estimated Creatinine Clearance 79 ml/min; Glucose 106 mg/dl (70-99); Magnesium 1.9 mg/dl (1.6-2.3); Potassium 3.9 mmol/L (3.5-5.1); Sodium 137 mmol/L (135-145); eGFR > 60.00
[2024-12-10] MEDS: TYLENOL 1000 MG PO ×3 (06:32→20:20)
--- NOTE | 2024-12-10 06:46 | W.PN.CT ---
Today's Communication / Plan
-
-pod #3
-no issues overnight
-CI 3.30, CO 5.64, SVR 766. Drips: Dobut off at 4am
-got 1 pRBC for symptomatic anemia, Hg 7.8- Hg today 8.6
-diuresed with 40 iv Lasix- UO 1435/3740 in 12/24 hrs - continue diuresis
-platelets are low, but stable - 61K today (57K on 12/09)- holding ASA and Plavix
-on Macrobid for Klebsiella UTI
-encourage IS, OOB
Assessment / Plan
-
- s/p aortic valve replacement #23 mm Inspiris Resilia, mitral valve replacement #29 mm Mitris Resilia (chordal sparing), CABG x 1 [SVG to distal RCA], modified left atrial maze [encompass clamp with RF ablation] and left atrial appendage exclusion
[#35 mm device]; Extensive debridement of the mitral annulus and aortic annulus using an ultrasonic debrider by Dr. Juarez on 12/07/24, pod #3
- Intraop DANIEL: EF�55%, AV 14/7mmHg, MV 2/1mmHg, no residual lumen s/p clip, mild TR
- brief intra-op AF, postop in SR w/ new 1st AVB, frequent PACs
- Mixed pathology mitral valve insufficiency, severe, type IIIb and II
- Severe aortic valve stenosis with a mean gradient of 55 on DANIEL
- T2DM (A1C 6.1) with L 5th toe ulcer
- Hypertension
- Hyperlipidemia
- Osteoporosis
- Epidural abscess
- History of alcohol abuse
- Moderate left subclavian stenosis
- Spina bifida
- Neurogenic bladder, self-caths at home
- b/l THR
- Acute postop blood loss anemia - s/p 2 pRBCs
- Acute postop thrombocytopenia
- Acute postop atelectasis
- Acute postop hypovolemia with subsequent hypervolemia
- Suspect acute postop pericarditis
- on Macrobid for Klebsiella UTI
Discussed patient care with: Nursing and Care Team
Subjective
-
Date of Service: December 10, 2024
Objective Data
-
Lab Results
12/10/24 04:11
12/10/24 04:11
PT 18.8 Sec (11.4-14.6) H 12/07/24 12:23
INR 1.52 12/07/24 12:23
APTT 36.2 Sec (23.4-35.0) H 12/07/24 12:23
Vital Signs
Vital Signs
Temp Pulse Resp BP Pulse Ox
98.8 F 90 17 93/50 100
12/10/24 06:00 12/10/24 06:15 12/10/24 06:15 12/10/24 06:00 12/10/24 06:15
CT Intake/Output/Weight
12/09/24 12/09/24 12/10/24
06:59 18:59 06:59
Intake Total 840.0 / 3089.7 2118.9 / 2563.8 444.9 / 2563.8
Output Total 675 / 1120 2355 / 3790 1435 / 3790
Balance 165.0 / 1969.7 -236.1 / -1226.2 -990.1 / -1226.2
SaO2: 100
Physical Exam
-
General: Awake and AOx3
Cardiovascular: Regular rate & rhythm, No Murmurs and No Rub
Respiratory: Decreased Breath Sounds
Sternum: Stable
Incision: Clean, Dry and Intact
Extremities: Edema +1
Abdomen: soft, nontender, nondistended, + bowel sounds
Data Reviewed
-
Lab Results: Results Reviewed
Medications: Active Meds Reviewed
Chest X-Ray: Report Reviewed and Image Reviewed
ECG: Report Reviewed and Image Reviewed
--- NOTE | 2024-12-10 06:47 | W.PN.INTV ---
Today's Communication / Plan
Recommendations
Dobutamine has been weaned off
Transfusion noted, hemoglobin stable, platelets stabilized
Incentive spirometry, pain control
Out of bed to chair
Echocardiogram planned Thursday
Once transferred to telemetry, we will sign off. Please call with questions
Assessment
-
74-year-old female with progressive shortness of breath found to have valve disease and single-vessel coronary disease, status post aortic and mitral bioprosthetic valve replacement, single bypass with left lower extremity harvest 12/07/2024
S/p aortic valve, mitral valve repair with bioprosthesis, 12/07/2024
CABg x 1
Postoperative anemia
Postoperative hypotension requiring pressors
Atrial fibrillation
Conditions present prior to admission
Hypertension/hyperlipidemia
History of diabetes
History of epidural abscess
Moderate alcohol use
Distant tobacco history, quit 2006
Plan/recommendations
At this time, patient appears to be comfortable, remains on low-dose dobutamine, off since 4:00 this morning
Transfusion noted
Hemoglobin improved to 8.6
Postoperative valvular repair with bioprosthesis aortic and mitral valve, bypass surgery x 1
Minimal chest tube drainage at this time
Chest x-ray with no acute findings, mild left basilar atelectasis
Moving forward, continue with CT surgery management
Follow hemoglobin
Blood products per CT surgery
Chest tube drainage, chest tube management per CT surgery
Atrial fibrillation history noted. Left atrial appendage clip completed
Postoperative DANIEL revealed no paravalvular leak and normal leaflet excursion and normal ventricular function
Repeat echocardiogram Thursday per CT surgery
Now off dobutamine
Follow blood sugars
History of spina bifida, self-catheterization at home
Lawrence catheter per CT surgery
Remains on Macrobid for UTI
Platelets noted, follow. 61, stabilized
Pain control, out of bed to chair as able
Reviewed with critical care nursing
Once transferred to telemetry, we will sign off. Please call with questions
Subjective Dataa
Subjective Data
Date of Service:
Date of Service: December 10, 2024
Subjective:
Patient had uneventful night. Denies significant shortness of breath, nausea. Appears to be comfortable
Objective Data
Data Reviewed
Vital Signs / I&O / Oxygen:
Vital Signs
Temp Pulse Resp BP Pulse Ox
98.8 F 90 17 93/50 100
12/10/24 06:00 12/10/24 06:15 12/10/24 06:15 12/10/24 06:00 12/10/24 06:15
Intake and Output
12/08/24 12/09/24 12/10/24
06:59 06:59 06:59
Intake Total 2617.4 / 2677.4 2936.7 / 3089.7 2563.8 / 2563.8
Output Total 1894.5 / 1939.5 1090 / 1120 3790 / 3790
Balance 722.9 / 737.9 1846.7 / 1969.7 -1226.2 / -1226.2
SaO2 [SIMV] 97
SaO2 100
Nasal Cannula flow liters per 4
minute
Physical Exam
General: Comfortable and Other (IJ, A-line, chest tube)
HEENT: Normocephalic and Anicteric
Cardiovascular: S1-S2, Regular Rhythm, Murmur (n) and Rub (n)
Respiratory: Wheeze (n), Crackles (n), Rhonchi (n) and Non-Labored Respirations
GI: Soft, Non Distended and Non Tender
Neurology: Awake, Alert and No Motor Deficits (Moves extremities)
Skin: Good Color
Labs/Micro/Reports
Lab Data
12/10/24 04:11
12/10/24 04:11
Microbiology
12/07/24 07:15 Urine Urine Culture - Final
Klebsiella pneumoniae
12/06/24 12:38 Nose MRSA Screen - Final
No Methicillin Resistant Staphylococcus aureus isolated.
--- NOTE | 2024-12-10 07:58 | PTCARENOTE ---
Pt received from outgoing RN, eneida, in bed, Rt sam faria swan @50, 2Lnc, NSR, off all drips, oob to chair, ambulate with RN, ernesto faria & an today
[2024-12-10 08:15] LABS: Glucose - Point of Care 112 mg/dl (70-99)
[2024-12-10] MEDS: GLUCOPHAGE 500 MG PO ×2 (08:25→16:38)
[2024-12-10] MEDS: BACTROBAN 2% OINTMENT 1 APPLIC NASAL ×2 (08:25→20:20)
[2024-12-10] MEDS: NEURONTIN 100 MG PO ×3 (08:25→20:19)
[2024-12-10] MEDS: MACROBID 100 MG PO ×2 (08:25→20:19)
[2024-12-10] MEDS: SENOKOT-S 1 TABLET PO ×2 (08:25→20:20)
[2024-12-10] MEDS: FARXIGA 10 MG PO (08:25)
[2024-12-10] MEDS: PROTONIX 40 MG PO (08:26)
[2024-12-10] MEDS: MAGNESIUM OXIDE 500 MG PO ×2 (08:26→20:20)
[2024-12-10] MEDS: LIDOCAINE 4% PATCH TOPICAL (08:29)
[2024-12-10] MEDS: LASIX 40 MG IV (09:17)
--- NOTE | 2024-12-10 09:28 | PTCARENOTE ---
Pt rt radial lauren dced bedrest x1 hour
[2024-12-10 09:54] LABS: INR 1.19; PT 15.4 Sec (11.4-14.6)
--- NOTE | 2024-12-10 11:42 | PTCARENOTE ---
pt reassessment unchanged from previous, vss, ra, nsr, rt Ij cordis, ambulating with cardiac rehab and nursing with rw, continue to encourage IS use.
[2024-12-10 12:29] LABS: Glucose - Point of Care 124 mg/dl (70-99)
[2024-12-10] MEDS: FERRLECIT 110 MG IV (13:50)
--- NOTE | 2024-12-10 15:15 | PTCARENOTE ---
Pt reassessment unchanged from previous, vss, 2lnc, nsr 1avb, rt ij corids, piv, beltran.
[2024-12-10 16:38] LABS: Glucose - Point of Care 137 mg/dl (70-99)
[2024-12-10] MEDS: COUMADIN 2.5 MG PO (18:25)
[2024-12-10] MEDS: LIPITOR 80 MG PO (20:20)
[2024-12-10] MEDS: REMOVE LIDOCAINE PATCH 1 PATCH REMOVE (20:20)
--- NOTE | 2024-12-10 22:19 | PTCARENOTE ---
assumed care of patient @ 1900. received pt laying in bed, Aox3. VSS on RA. [place] b/l. SR 1st degree AVB. +pulses, trace edema noted throughout. Lungs clear, diminished satting mid 90s on 2L. BS hypoactive. beltran present draining clear yellow urine.
Surgical sites CDI, SKIDDER with glue. R IJ cordis and PIV both patent. pt resting comfortably in bed with call lyons within reach .
--- NOTE | 2024-12-10 23:00 | PTCARENOTE ---
pt resting comfortably, no change in assessment .
--- NOTE | 2024-12-11 04:00 | PTCARENOTE ---
labs drawn and sent , pt resting comfortably , no change in assessment .
[2024-12-11 04:04] VITALS: BP 104/55
[2024-12-11 04:30] LABS: INR 1.08; PT 14.3 Sec (11.4-14.6)
[2024-12-11 04:34] LABS: Hematocrit 27.1 % (37.0-47.0); Hemoglobin 8.9 g/dL (12.0-16.0); Mean Corp Hgb Conc. 32.8 g/dL (33.0-37.0); Mean Corpuscular Volume 89.7 fL (81.0-99.0); Platelet Count 90 10^3/uL (130-400); Red Cell Dist. Width 14.8 % (11.5-14.5)
[2024-12-11 04:43] LABS: Blood Urea Nitrogen 18 mg/dl (7-17); Calcium 9.0 mg/dl (8.4-10.2); Carbon Dioxide 33 mmol/L (22-30); Chloride 106 mmol/L (98-107); Estimated Creatinine Clearance 79 ml/min; Glucose 104 mg/dl (70-99); Magnesium 1.9 mg/dl (1.6-2.3); Potassium 3.6 mmol/L (3.5-5.1); Sodium 139 mmol/L (135-145); eGFR > 60.00
--- NOTE | 2024-12-11 05:37 | W.PN.CT ---
Today's Communication / Plan
-
-pod #4
-no issues overnight
-de-lined
-diuresed with 40 iv Lasix- UO 900/2375 in 12/24 hrs - continue diuresis
-platelets are low, but stable - 61->90 today (57K on 12/09)- holding ASA and Plavix
-Coumadin 2.5 mg yesterday, INR 1.08 this AM
-on Macrobid for Klebsiella UTI
-pending echo for Thursday
-encourage IS, OOB
Assessment / Plan
-
- s/p aortic valve replacement #23 mm Inspiris Resilia, mitral valve replacement #29 mm Mitris Resilia (chordal sparing), CABG x 1 [SVG to distal RCA], modified left atrial maze [encompass clamp with RF ablation] and left atrial appendage exclusion
[#35 mm device]; Extensive debridement of the mitral annulus and aortic annulus using an ultrasonic debrider by Dr. Juarez on 12/07/24, pod #4
- Intraop DANIEL: EF�55%, AV 14/7mmHg, MV 2/1mmHg, no residual lumen s/p clip, mild TR
- brief intra-op AF, postop in SR w/ new 1st AVB, frequent PACs
- Mixed pathology mitral valve insufficiency, severe, type IIIb and II
- Severe aortic valve stenosis with a mean gradient of 55 on DANIEL
- T2DM (A1C 6.1) with L 5th toe ulcer
- Hypertension
- Hyperlipidemia
- Osteoporosis
- Epidural abscess
- History of alcohol abuse
- Moderate left subclavian stenosis
- Spina bifida
- Neurogenic bladder, self-caths at home
- b/l THR
- Acute postop blood loss anemia - s/p 2 pRBCs
- Acute postop thrombocytopenia
- Acute postop atelectasis
- Acute postop hypovolemia with subsequent hypervolemia
- Suspect acute postop pericarditis
- on Macrobid for Klebsiella UTI
Subjective
-
Date of Service: December 11, 2024
Objective Data
-
Lab Results
12/11/24 04:03
12/11/24 04:03
PT 14.3 Sec (11.4-14.6) 12/11/24 04:03
INR 1.08 12/11/24 04:03
APTT 36.2 Sec (23.4-35.0) H 12/07/24 12:23
Vital Signs
Vital Signs
Temp Pulse Resp BP Pulse Ox
98.9 F 90 16 104/55 95
12/11/24 04:00 12/11/24 05:00 12/11/24 04:00 12/11/24 04:04 12/11/24 04:00
CT Intake/Output/Weight
12/10/24 12/10/24 12/11/24
06:59 18:59 06:59
Intake Total 444.9 / 2583.8 370 / 950 580 / 950
Output Total 1435 / 3840 1475 / 2375 900 / 2375
Balance -990.1 / -1256.2 -1105 / -1425 -320 / -1425
SaO2: 95
Physical Exam
-
General: Awake, Oriented and AOx3
Cardiovascular: Regular rate & rhythm, No Murmurs and No Rub
Respiratory: Equal
Sternum: Stable
Incision: Clean, Dry and Intact
Extremities: No Edema and No Erythema
Data Reviewed
-
Lab Results: Results Reviewed
Medications: Active Meds Reviewed
Chest X-Ray: Report Reviewed
ECG: Report Reviewed
[2024-12-11 06:00] VITALS: BMI 30.6
[2024-12-11] MEDS: TYLENOL 1000 MG PO ×3 (06:36→21:55)
--- NOTE | 2024-12-11 06:58 | W.PN.INTV ---
Today's Communication / Plan
Recommendations
Incentive spirometry, out of bed to chair
Echocardiogram on Thursday
Diuresis continues
Platelets improved
Once transferred to telemetry, we will sign off. Please call with questions
Assessment
-
74-year-old female with progressive shortness of breath found to have valve disease and single-vessel coronary disease, status post aortic and mitral bioprosthetic valve replacement, single bypass with left lower extremity harvest 12/07/2024
S/p aortic valve, mitral valve repair with bioprosthesis, 12/07/2024
CABg x 1
Postoperative anemia
Postoperative hypotension requiring pressors
Atrial fibrillation
Conditions present prior to admission
Hypertension/hyperlipidemia
History of diabetes
History of epidural abscess
Moderate alcohol use
Distant tobacco history, quit 2006
Plan/recommendations
At this time, patient appears to be comfortable, off pressors
Transfusion noted
Hemoglobin stable, platelets improving to 90
Postoperative valvular repair with bioprosthesis aortic and mitral valve, bypass surgery x 1
Chest tubes removed
Remains on Macrobid for UTI
Chest x-ray with no acute findings, mild left basilar atelectasis, small pleural effusion on lateral
Moving forward, continue with CT surgery management
Follow hemoglobin
Blood products per CT surgery
Atrial fibrillation history noted. Left atrial appendage clip completed
Postoperative DANIEL revealed no paravalvular leak and normal leaflet excursion and normal ventricular function
Repeat echocardiogram Thursday per CT surgery
Now off dobutamine
Follow blood sugars
History of spina bifida, self-catheterization at home
Lawrence catheter per CT surgery
Remains on Macrobid for UTI
Platelets noted, follow. Increased to 90
Coumadin therapy started
Pain control, out of bed to chair as able
Reviewed with critical care nursing
Once transferred to telemetry, we will sign off. Please call with questions
Subjective Dataa
Subjective Data
Date of Service:
Date of Service: December 11, 2024
Subjective:
Patient sitting in chair, shortness of breath improving, incisional discomfort improving. Denies nausea, abdominal pain. Passing gas
Objective Data
Data Reviewed
Vital Signs / I&O / Oxygen:
Vital Signs
Temp Pulse Resp BP Pulse Ox
98.9 F 90 16 104/55 95
12/11/24 04:00 12/11/24 05:00 12/11/24 04:00 12/11/24 04:04 12/11/24 05:40
Intake and Output
12/09/24 12/10/24 12/11/24
06:59 06:59 06:59
Intake Total 2936.7 / 3089.7 2563.8 / 2583.8 950 / 950
Output Total 1090 / 1120 3790 / 3840 2375 / 2375
Balance 1846.7 / 1969.7 -1226.2 / -1256.2 -1425 / -1425
SaO2 [SIMV] 97
SaO2 95
Nasal Cannula flow liters per 2
minute
Physical Exam
General: Comfortable and Other (IJ)
HEENT: Normocephalic and Anicteric
Cardiovascular: S1-S2, Regular Rhythm, Murmur (n) and Rub (n)
Respiratory: Wheeze (n), Crackles (n), Rhonchi (n), Non-Labored Respirations and Other (Decreased at base)
GI: Soft, Non Distended and Non Tender
Neurology: Awake, Alert and No Motor Deficits (Moves extremities)
Skin: Good Color
Labs/Micro/Reports
Lab Data
12/11/24 04:03
12/11/24 04:03
Laboratory Results
12/10/24 12/11/24
09:15 04:03
PT 15.4 H 14.3
INR 1.19 1.08
Microbiology
12/07/24 07:15 Urine Urine Culture - Final
Klebsiella pneumoniae
[2024-12-11 07:56] VITALS: BP 109/63
--- NOTE | 2024-12-11 08:00 | PTCARENOTE ---
assumed care of patient from previous RN. pt in chair at time of assessment. AAox3. VSS. SR 1st degree AVB. HR 80s. +pulses, trace edema. 95% RA. Lungs clear, +bs and good appetite. beltran present draining clear yellow urine. Surgical sites CDI. R
IJ cordis and PIV both patent. will continue to monitor.
[2024-12-11] MEDS: MAGNESIUM OXIDE 500 MG PO ×2 (09:29→20:16)
[2024-12-11] MEDS: PROTONIX 40 MG PO (09:29)
[2024-12-11] MEDS: FARXIGA 10 MG PO (09:29)
[2024-12-11] MEDS: MACROBID 100 MG PO ×2 (09:30→20:16)
[2024-12-11] MEDS: LIDOCAINE 4% PATCH TOPICAL (09:30)
[2024-12-11] MEDS: KCL 40 MEQ PO (09:30)
[2024-12-11] MEDS: NEURONTIN 100 MG PO ×2 (09:30→21:55)
[2024-12-11] MEDS: SENOKOT-S 1 TABLET PO ×2 (09:30→20:16)
[2024-12-11] MEDS: BACTROBAN 2% OINTMENT 1 APPLIC NASAL (09:31)
[2024-12-11] MEDS: GLUCOPHAGE 500 MG PO ×2 (09:31→16:51)
[2024-12-11] MEDS: NSS IV (09:31)
[2024-12-11 10:57] VITALS: BP 111/92
--- NOTE | 2024-12-11 12:00 | PTCARENOTE ---
VSS. assistx1 to stand then walks independently with walker in halls.
[2024-12-11] MEDS: LASIX 40 MG IV (14:14)
[2024-12-11] MEDS: LOPRESSOR 12.5 MG PO ×2 (14:15→20:16)
[2024-12-11 14:20] VITALS: BP 123/56
--- NOTE | 2024-12-11 16:44 | PTCARENOTE ---
IV lasix given. VSS. no pain reported. will continue to monitor.
[2024-12-11] MEDS: NEURONTIN PO (16:51)
[2024-12-11] MEDS: COUMADIN 5 MG PO (16:51)
[2024-12-11 16:54] VITALS: BP 133/54
[2024-12-11 17:56] LABS: Glucose - Point of Care 123 mg/dl (70-99)
[2024-12-11 20:16] VITALS: BP 119/59
[2024-12-11] MEDS: REMOVE LIDOCAINE PATCH REMOVE (20:16)
--- NOTE | 2024-12-11 20:21 | PTCARENOTE ---
assumed care of pt from previous rn. pt ambulated around [facility] w/ RN. Pt AAOx4, NSR w/ 1st degree AVB HR 90s. generalized edema, +pulses, A/V wire insulated. pox 93% on RA, lungs diminished throughout, occasional non productive cough, +bs, Lawrence
draining clear yellow urine, all surgical sites intact. CT dressing c/d/i, RIJ cordis infusing KVO, PIVx1 intact. plan of care discussed, questions encouraged, call lyons within reach.
[2024-12-11] MEDS: LIPITOR 80 MG PO (21:55)
[2024-12-11 22:01] LABS: Glucose - Point of Care 108 mg/dl (70-99)
[2024-12-12] VITALS (7 sets, daily range): BP systolic 95–131; BP diastolic 47–62; PULSE 91; O2SAT 95–96; BMI 30.3
--- NOTE | 2024-12-12 00:25 | PTCARENOTE ---
VSS, 2L NC, otherwise assessment remains unchanged
--- NOTE | 2024-12-12 04:28 | PTCARENOTE ---
VSS , routine labs obtained. assessment unchanged.
[2024-12-12 04:41] LABS: Hematocrit 28.4 % (37.0-47.0); Hemoglobin 9.1 g/dL (12.0-16.0); Mean Corp Hgb Conc. 32.0 g/dL (33.0-37.0); Mean Corpuscular Volume 89.9 fL (81.0-99.0); Platelet Count 95 10^3/uL (130-400); Red Cell Dist. Width 14.7 % (11.5-14.5)
[2024-12-12 04:43] LABS: INR 1.31; PT 16.6 Sec (11.4-14.6)
[2024-12-12 04:58] LABS: Blood Urea Nitrogen 19 mg/dl (7-17); Calcium 9.0 mg/dl (8.4-10.2); Carbon Dioxide 32 mmol/L (22-30); Chloride 105 mmol/L (98-107); Estimated Creatinine Clearance 78 ml/min; Glucose 95 mg/dl (70-99); Magnesium 1.9 mg/dl (1.6-2.3); Potassium 3.7 mmol/L (3.5-5.1); Sodium 137 mmol/L (135-145); eGFR > 60.00
--- NOTE | 2024-12-12 05:51 | W.PN.CT ---
Today's Communication / Plan
-
-pod #5
-no issues overnight
-restarted metoprolol, tolerating
-diuresed with 40 iv Lasix- UO 1335/3765 in 12/24 hrs
-platelets are low, but improving - 61->90->95 today (57K on 12/09)- holding ASA and Plavix
-Coumadin 5 mg yesterday, INR 1.31 this AM
-current meds: atorvastatin, metoprolol 12.5, midodrine 10 mg, Farxiga,
-on Macrobid for Klebsiella UTI
-pending echo for today
-encourage IS, OOB
Assessment / Plan
-
- s/p aortic valve replacement #23 mm Inspiris Resilia, mitral valve replacement #29 mm Mitris Resilia (chordal sparing), CABG x 1 [SVG to distal RCA], modified left atrial maze [encompass clamp with RF ablation] and left atrial appendage exclusion
[#35 mm device]; Extensive debridement of the mitral annulus and aortic annulus using an ultrasonic debrider by Dr. Juarez on 12/07/24, pod #5
- Intraop DANIEL: EF�55%, AV 14/7mmHg, MV 2/1mmHg, no residual lumen s/p clip, mild TR
- brief intra-op AF, postop in SR w/ new 1st AVB, frequent PACs
- Mixed pathology mitral valve insufficiency, severe, type IIIb and II
- Severe aortic valve stenosis with a mean gradient of 55 on DANIEL
- T2DM (A1C 6.1) with L 5th toe ulcer
- Hypertension
- Hyperlipidemia
- Osteoporosis
- Epidural abscess
- History of alcohol abuse
- Moderate left subclavian stenosis
- Spina bifida
- Neurogenic bladder, self-caths at home
- b/l THR
- Acute postop blood loss anemia - s/p 2 pRBCs
- Acute postop thrombocytopenia
- Acute postop atelectasis
- Acute postop hypovolemia with subsequent hypervolemia
- Suspect acute postop pericarditis
- on Macrobid for Klebsiella UTI
Subjective
-
Date of Service: December 12, 2024
Objective Data
-
Lab Results
12/12/24 04:24
12/12/24 04:24
PT 16.6 Sec (11.4-14.6) H 12/12/24 04:23
INR 1.31 12/12/24 04:23
APTT 36.2 Sec (23.4-35.0) H 12/07/24 12:23
Vital Signs
Vital Signs
Temp Pulse Resp BP Pulse Ox
98.3 F 87 16 95/50 92
12/12/24 04:05 12/12/24 04:01 12/12/24 04:05 12/12/24 04:01 12/12/24 04:05
CT Intake/Output/Weight
12/11/24 12/11/24 12/12/24
06:59 18:59 06:59
Intake Total 580 / 950 450 / 450
Output Total 900 / 2375 2430 / 3765 1335 / 3765
Balance -320 / -1425 -1980 / -3315 -1335 / -3315
SaO2: 92
Physical Exam
-
General: Awake and Oriented
Cardiovascular: Regular rate & rhythm and No Rub
Respiratory: Clear and Equal
Sternum: Stable
Incision: Clean, Dry and Intact
Extremities: No Edema and No Erythema
Data Reviewed
-
Lab Results: Results Reviewed
Medications: Active Meds Reviewed
Chest X-Ray: Report Reviewed
ECG: Report Reviewed
[2024-12-12] MEDS: TYLENOL 1000 MG PO ×2 (06:16→14:10)
--- NOTE | 2024-12-12 07:47 | PN.DE.MGMTRT ---
Insulin Management
- -
12/12/2024: Diabetes Management Follow
Patient admitted 12/07 for CABG x 1 and multiple valve repair. PMH diabetes, HTN, HLD, microalbumin, spina bifida with neurogenic bladder, osteopenia. Prior to admission was taking metformin 500 mg BID. States she has had diabetes 10+ years is
followed by her primary care provider for ongoing diabetes care. States she has a glucose monitor and supplies at home. A1C 6.1%, Cr 0.7, eGFR > 60.
Patient awake, alert and oriented, sitting up in chair, EXTREMELY TABLE MOUNTAIN, able to discuss diabetes care.
POD # 5 s/p AVR, CABG x1, doing well. transitioned off insulin infusion on 12/09 to Metformin 500mg BID and Farxiga 10 mg daily.
Glucose stable 123 to 137, HS glucose was 108 and fasting 95 this AM.
Will make no changes to current regimen, cont Metformin 500mg BID and Farxiga 10 mg daily.
Spoke to pt and Lilia Shelton via phone about starting Farxiga, they would like cost verified prior d/c. Will ask CM to look up co-pay for SGLT2
Discussed with nurse and CV PA & SENIOR LICENSING MANAGER. Will cont to follow
Diabetes History
- -
Type of Diabetes: 2
Pre-Admission Diabetes Regimen
12/12/24
04:24
Creatinine 0.6
Lab Results
Hemoglobin A1c 6.1 % (4.0-5.6) H 12/06/24 12:38
Insulin Pump Settings
IP Diabetes Regimen
12/11/24 12/11/24 12/12/24
17:55 22:00 04:24
Glucose 95
POC Glucose 123 H 108 H
Meal type: Breakfast
Amount consumed: 100%
Patient Education
[2024-12-12 08:41] LABS: Glucose - Point of Care 107 mg/dl (70-99)
--- NOTE | 2024-12-12 08:43 | W.PN.CD ---
Today's Communication / Plan
-
remains in sinus
continue post op care per CT surgery
coumadin dosing per CT surgery
Impression / Plan
-
Impression/Plan: 74 y/o female with spina bifida requiring straight catheterization, NIDDM, HTN< HLD, EtOH dependence, moderate and severe, symptomatic mitral valve regurgitation and CAD in the RCA admitted for elective AVR/MVr/CABG.
# Post op cardiothoracic surgery
-S/P #23 Gonzalez Inspiris Resilia SAVR (serial #[id number]) with Dr. Juarez, 12/07/2024.
-S/P #29 Gonzalez Mitris Resilia SMVR (serial #[id number]) with Dr. Juarez, 12/07/2024.
-Brief intraoperative AF, s/p LAAE with #35 AtriClip (serial #[id number]).
in NSR
Patietn being dosed with coumdian per CT surgery
-
#CAD
-S/P 1V CABG (SVG to RCA) with Dr. Juarez, 12/07/2024.
-Continue aspirin, atorvastatin, ( plavix stopped with useof coumadin)
#post op anemia - improving
- moinitor
#HTN - pre op. Monitor pressures post op
#HLD
-Continue atorvastatin.
-Goal LDL < 55.
#NIDDM2
-Chronic.
Subjective/Interval History:
Weight up an additional 0.9 kg.
Norepinephrine weaned off, remains on dobutamine and vasopressin.
CI > 3.5, SVR 698.
SaO2 = 96% on 4LNC.
Hbg down (7.8 <-- 9.2).
Platelets 57k.
DATA:
AVR/MVR, 12/07/2024:
Procedure(s) Performed:
1. Standard sternotomy with aortic and bicaval cannulation.
2. Modified left atrial maze [encompass clamp with RF ablation] and left atrial appendage exclusion [#35 Atriclip, serial #[id number]].
3. Chordal sparing mitral valve replacement [relocation of anterior leaflet to the posterior annulus] using a #29 Gonzalez mitris Resilia mitral valve, serial #[id number].
4. Extensive debridement of the mitral annulus and aortic annulus using an ultrasonic debrider, modifier 22 for added complexity and time.
5. Surgical aortic valve replacement [#23 Gonzalez Inspiris Resilia aortic valve, serial #[id number]].
6. CABG x 1 [Ao to RSVG to distal RCA], endoscopic vein harvesting of the right lower and left lower extremity.
7. Placement of temporary atrial and ventricular pacing wires.
8. Transesophageal echocardiography.
CTA Chest/Abdomen/Pelvis, 11/30/2024:
IMPRESSION:
1. Coronary and aortic advanced atherosclerotic changes. Negative for aortic aneurysmal dilation. Stenosis of left subclavian artery.
2. No acute pulmonary process.
3. No acute intra-abdominal process.
DANIEL. 11/18/2024:
CONCLUSIONS
Normal biventricular size and systolic function without regional wall motion
abnormality. LVEF 60-65%.
Severe eccentric mitral regurgitation due to P3 flail.
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
of the aortic valve.
At least mild aortic stenosis.
No prior study available for comparison.
Cardiac Catheterization, 11/18/2024:
CONCLUSIONS:
1. Right dominant circulation with dense external calcification of the left circulation but only minor luminal irregularities within the LAD and a calcified, 90% lesion in the proximal RCA followed by a 60% lesion in the proximal RCA.
2. Moderately elevated filling pressures (PCWP = 21 mmHg at 73.3 kg) with a large V wave (45 mmHg) consistent with known history of severe mitral valve regurgitation.
3. 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
4. Moderate aortic valve stenosis and severe, eccentric mitral regurgitation by echocardiography.
5. Calcific, atherosclerotic plaque of the right subclavian artery without significant pressure degradation on pullback.
6. Mild postcapillary pulmonary hypertension (mean PA = 31 mmHg, PCWP = 21 mmHg, cardiac output = 4.0 L/min, PVR = 2.5 Alvarado units), WHO group 2.
Physical Exam
Vital Signs/Labs
Vital Signs
Temp Pulse Resp BP Pulse Ox
98.3 F 92 16 95/50 92
12/12/24 04:05 12/12/24 07:00 12/12/24 04:05 12/12/24 04:01 12/12/24 05:53
12/11/24 12/12/24 12/13/24
06:59 06:59 06:59
Actual Weight 75.8 kg 75 kg
12/12/24 04:24
12/12/24 04:24
PT 16.6 Sec (11.4-14.6) H 12/12/24 04:23
INR 1.31 12/12/24 04:23
APTT 36.2 Sec (23.4-35.0) H 12/07/24 12:23
Magnesium 1.9 mg/dl (1.6-2.3) 12/12/24 04:24
Physical Exam
Constitutional: No acute distress
Cardiovascular: Rhythm & rate is regular
Respiratory: Wheeze Absent and Rhonchi Absent
GI: Soft
Neuro/Psych: Alert
Data Reviewed
-
Date of Service: December 12, 2024
Medical Decision Making: Reviewed Test Results
X-Ray/CT/US/MRI/NUC/PET: Report Reviewed by me
Medical Tests (PFT, Pathology etc): Image Personally Visualized and interpreted
Labs: Labs Reviewed by me
--- NOTE | 2024-12-12 09:17 | PTCARENOTE ---
Assumed care of patient at 0700. Pt is awake, alert, and oriented. No complaints of pain. Pt remains SR with first degree AV block, HR 90's. BP 105/47 MAP 65. AV wires remain insulated. Pulse oximetry 95% on room air. Pt tolerating PO diet. Lawrence
catheter remains in place, pt with hx straight cathing at home. Midsternal incision approximated and DEPUTY SHERIFF BAILIFF. Bilateral leg incisions approximated and MARTÍNEZ. Right IJ cordis in place with KVO.
[2024-12-12] MEDS: LOPRESSOR 12.5 MG PO (09:20)
[2024-12-12] MEDS: FARXIGA 10 MG PO (09:20)
[2024-12-12] MEDS: MAGNESIUM OXIDE 500 MG PO (09:20)
[2024-12-12] MEDS: MACROBID 100 MG PO (09:21)
[2024-12-12] MEDS: GLUCOPHAGE 500 MG PO (09:21)
[2024-12-12] MEDS: PROTONIX 40 MG PO (09:21)
[2024-12-12] MEDS: NEURONTIN 100 MG PO (09:21)
[2024-12-12] MEDS: PACERONE 200 MG PO (09:21)
[2024-12-12] MEDS: LIDOCAINE 4% PATCH TOPICAL (09:22)
[2024-12-12] MEDS: LASIX 40 MG IV (09:22)
[2024-12-12] MEDS: SENOKOT-S 1 TABLET PO (09:37)
--- NOTE | 2024-12-12 11:45 | PTCARENOTE ---
Echo done at bedside. Pt ambulated with cardiac rehab, tolerated steps. Right IJ cordis d/c'd per order. AV wires cut by CT CHRIS, Merary without issue. Pt remains SR with first degree AV block, HR 90's. BP 108/62 MAP 76.
--- NOTE | 2024-12-12 11:53 | W.PN.UPDATE ---
Update Note
Progress Note Update
No pacing required since surgery. 2 atrial and 1 bipolar ventricular wire CUT at skin level. patient will be continued on Coumadin/ASA for bioprosthetic MVR. Plan for DC home today
[2024-12-12] MEDS: NSS IV (11:54)
--- NOTE | 2024-12-12 12:23 | W.DCSUMMARY ---
Discharge Summary
Discharge Data
Date of Admission: 12/07/24
Date of Discharge: 12/12/24
Total time spent discharging patient (in min): 45
-
Pending Results: No
Hospital Course
Primary care physician:
Dr. Elodia Michel MD.
Outpatient telephone order dispatcher:
Dr. Tom Chavez MD.
Inpatient consultants:
Diabetes Nurse Practitioner
Procedures:
1. Chordal sparing mitral valve replacement using a 29 mm bioprosthesis
2. Extensive debridement of mitral annulus and aortic annulus using an ultrasonic debrider
3. Surgical aortic valve replacement using a number 23 mm bioprosthesis
4. CABG x 1 SVG�RCA from right lower extremity via endoscopic vein harvest
5. Modified left atrial maze [encompass clamp with RF ablation] and left atrial appendage exclusion [35 mm device]
Procedure performed by Dr. Juarez on 12/07/2024
Primary Diagnosis:
1. 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
2. New onset atrial fibrillation
3. Type 2 diabetes mellitus with left fifth toe ulcer, on oral therapy
4. Hypertension
5. Hyperlipidemia
6. Osteopenia
7. Spina bifida
8. Neurogenic bladder
9. Epidural abscess
10. History of bilateral total hip replacement
11. History of alcohol abuse
12. Post operative acute blood loss anemia s/p multiple PRBC
13. Preoperative UTI treated with nitrofurantoin
14. Postoperative thrombocytopenia
Secondary Diagnoses:
1. 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
2. New onset atrial fibrillation
3. Type 2 diabetes mellitus with left fifth toe ulcer, on oral therapy
4. Hypertension
5. Hyperlipidemia
6. Osteopenia
7. Spina bifida
8. Neurogenic bladder
9. Epidural abscess
10. History of bilateral total hip replacement
11. History of alcohol abuse
12. Post operative acute blood loss anemia s/p Multiple PRBC
13. Preoperative UTI treated with nitrofurantoin
14. Postoperative thrombocytopenia
HPI:
Patient is an extremely pleasant 74-year-old female with mixed pathology for mitral valve with mitral annular calcification and severe insufficiency. She was also found to have aortic valve stenosis. Based on her recent worsening of her symptoms
she underwent workup for surgical evaluation. As part of her preoperative workup left heart catheterization demonstrated single-vessel ostial RCA disease. She was seen by attending physician electively as an outpatient in consultation and
ultimately offered double valve replacement given the mitral pathology as well as single vessel coronary artery bypass grafting, encompass maze and ligation of her left atrial appendage utilizing a clip device.Patient presented to the hospital from
home on the day of surgery.
Hospital course:
Patient presented electively on the date described above for the procedure described above. Patient tolerated the procedure well. Patient remained intubated. She was transported from the operating room to the cardiovascular intensive care unit
where she underwent her postoperative recovery.
On postoperative day 0 she arrived to the CVICU in sinus rhythm. Hemoglobin was 8 2 and blood pressures were labile and she was transfused 1 unit of packed red blood cells. She necessitated high dose Levophed and as a result vasopressin was added.
Mixed venous O2 was 53.8% and dobutamine was added. She was successfully extubated at 1700 on postoperative day 0.
Postoperative day 1 she received 250 mL of albumin. Levophed and vasopressin were successfully weaned. Dobutamine remained at 3, and her left pleural chest tubes were removed.
On postoperative day 2 dobutamine was transitioned to 2 and then to 1. Vasopressin was restarted and remained at 0.02. Patient received an additional unit of packed red blood cells and was diuresed with 40 mg of IV Lasix. Insulin drip was
transitioned to sliding scale and she was restarted on her home metformin as well as Farxiga. Patient was found to have preoperative UTI with Klebsiella pneumonia and was started on Macrobid. Mediastinal chest tubes were removed.
On postoperative day #3 Farwell-Sienna catheter was removed. She continued aggressive diuresis with IV Lasix. She was started on Coumadin 2.5 mg. Heparin drip was held due to thrombocytopenia with platelets of 61.
Over the next subsequent days she was started on metoprolol. Her INR after 2.5 mg of Coumadin was 1.08 and she was ordered 5 mg. On postoperative day #5 her right IJ catheter was removed she continued diuresis with IV Lasix. And she was given 5
mg of Coumadin for an INR of 1.3. Transthoracic echocardiogram was performed showing an EFOf 60 to 65% of mitral valve with no significant regurgitation and aortic valve with no significant insufficiency. Patient's temporary epicardial pacing
wires were cut at the skin without issues. Case was discussed with attending physician, and she was medically cleared to be discharged to home.
Patient will have a PT/INR to be checked by the visiting nurse on 12/14/2024. She should continue taking Coumadin 5 mg daily unless instructed otherwise. INR goal is 2�3. Future dosing is to be done at the discretion of her telephone order dispatcher.
BMP is to be drawn on 12/16/2024 to monitor renal function on Lasix x 1 week.
Patient is to have the visiting nurse check her blood pressures secondary to patient being discharged on midodrine. She should discontinue midodrine if systolic blood pressures are greater than 140.
Home medication changes:
See above
Discharge Plan
-
Patient Disposition: Home (Routine Discharge)
Discharge Diagnosis/Procedures: AVR/MVR, CABG x 1, MAZE, left atrial appendage clip
Condition: Good
Diet: Low Cholesterol, Low Sodium and Diabetic, Carb Controlled
Activity: No strenuous activity
Driving Restrictions: Not until seen by your Dr
Bathing Restrictions: OK to Shower
Blood Work: PT/INR to be checked by the visiting nurse on 12/14/24. Continue taking Coumadin 5 mg daily unless instructed otherwise. INR goal 2-3. Future dosing to be at discretion of your telephone order dispatcher
BMP to be drawn on Thursday12/16/24 to monitor renal function on Lasix x 1 week
Have visiting nurse check BP. Discontinue Midodrine if SBP >140
Other Services: Cardiac Rehab
Specialty Instructions: Weigh Daily- Call MD for wt gain/loss 3 lbs overnight/5 lbs in 1 week
Referrals:
CT Transitional Care Nurse [Outside]
Referral Note: The Cardiothoracic Transitional Care Nurse will call you to set up a visit in 1-2 days.
[facility] [Outside] - 01/18/25 1:00 pm
Referral Note: Cardiac Rehab Orientation appointment is on January 18 at 1pm.
The Cardiac Rehab gym is located on the first floor of the [facility].
Kavita Thomson NP [Specified Professional Personl, Cardiology] - 01/25/25 11:00 am
Elodia Michel CRNP [Family Provider, Family Practice]
Brittany Mora CRNP [Specified Professional Personl, Cardiac Surgery] - 01/11/25 2:30 pm
Prescriptions:
New
dapagliflozin propanediol 10 mg Tablet
10 mg PO DAILY Qty: 30 0RF
Rx Instructions:
Please obtain refills from the provider who manages your diabetes
metoprolol tartrate 25 mg Tablet
12.5 mg PO Q12 Qty: 30 1RF
Rx Instructions:
Take 1/2 tab, 12.5 mg Q12
nitrofurantoin monohyd/m-cryst 100 mg Capsule
100 mg PO BID Qty: 4 0RF
Rx Instructions:
Take 1 cap BID for the next 2 days until the bottle is empty and then stop.
gabapentin 100 mg Capsule
100 mg PO TID PRN (Reason: post op nerve pain) Qty: 10 0RF
Rx Instructions:
Ongoing post op nerve pain
pantoprazole 40 mg Tablet,Delayed Release (Dr/Ec)
40 mg PO DAILY Qty: 30 0RF
Rx Instructions:
Take for GI prophylaxis with Aspirin and Coumadin. Obtain refills from PCP/Cardiology
acetaminophen 325 mg Tablet
650 mg PO Q4HPRN PRN (Reason: mild pain,headache,temp >101F ) Qty: 0 0RF
Rx Instructions:
Please purchase over the counter
midodrine 5 mg Tablet
10 mg PO TID@0800,1300,1800 Qty: 90 0RF
Rx Instructions:
Take until seen by Cardiology. Discontinue if systolic BP is greater than 140
potassium chloride [Klor-Con M20] 20 mEq tablet,ER particles/crystals
20 meq PO DAILY Qty: 7 0RF
Rx Instructions:
Take daily with Lasix for 7 days and then stop.
warfarin 5 mg tablet
5 mg PO DAILY Qty: 60 0RF
Rx Instructions:
Take 5 mg daily as directed. INR goal 2-3. Next PT/INR 12/14/24
Continued
multivitamin Tablet
1 tab PO DAILY
metformin 500 mg Tablet
500 mg PO BID
atorvastatin 80 mg Tablet
80 mg PO HS
aspirin 81 mg Tablet
81 mg PO DAILY
furosemide 40 mg Tablet
40 mg PO DAILY Qty: 7 0RF
Rx Instructions:
Take Lasix 40 mg daily until empty and them stop
Discontinued
amlodipine 10 mg Tablet
10 mg PO DAILY
benazepril 40 mg Tablet
40 mg PO DAILY
Discharge Orders:
Discharge Patient (As Directed); Ordered 12/12/24
Ordered By: Seema Samuels
Care Plan Goals
Care Plan Goals:
Problem: Readiness for enhanced knowledge related to diagnosis and treatment plan
Goal: Understand your diagnosis and treatment plan needs, including medications if applicable.
Instructions: Know your diagnosis, underlying causes and treatment plan options, including medications if applicable. Consult with your health care team to learn about your diagnosis and treatment plan, including medications if applicable.
Discharge Date and Time
Print Language: ROMANSH
--- NOTE | 2024-12-12 12:32 | CM ---
Chart reviewed. Patient ambulated the lassiter and stairs with Cardiac Rehab. Patient is independent of ADLS, lives alone in a 2 [address], 1st level set up, [facility], ambulates with a SPC, has grab bars and shower chair at home. Patient's daughters are
going to be staying with the patient when she goes home. Plan is for the patient to return home with daughters and CT Transitional RN. CM to follow
[2024-12-12] MEDS: KCL 40 MEQ PO (14:10)
--- NOTE | 2024-12-12 15:50 | PTCARENOTE ---
D/c order received. Lawrence d/c'd per order. Pt straight caths self at home. Questions addressed. Pt stable at discharge. Tele monitor and peripheral IV removed at discharge.
== END 2024-12-12 15:55 | disposition home or self-care (01) | DRG 212 ==
LOC: CVICU 05:15
PROVIDERS: Anesthesiology; Nurse Practitioner; Physician Assistant; Physician Assistant Medical; ADMITTING PHYSICIAN Thoracic Surgery (Cardiothoracic Vascular Surgery); CONSULT PHYSICIAN Internal Medicine Critical Care Medicine; FAMILY PHYSICIAN Nurse Practitioner Family; REFERRING PHYSICIAN Internal Medicine Cardiovascular Disease
PROC: 02RG08Z Replacement of Mitral Valve with Zooplastic Tissue, Open Approach (ICD-10-PCS; 2024-12-07)
PROC: 30233N1 Transfusion of Nonautologous Red Blood Cells into Peripheral Vein, Percutaneous Approach (ICD-10-PCS; 2024-12-07)
PROC: 5A1221Z Performance of Cardiac Output, Continuous (ICD-10-PCS; 2024-12-07)
PROC: 06BP4ZZ Excision of Right Saphenous Vein, Percutaneous Endoscopic Approach (ICD-10-PCS; 2024-12-07)
PROC: 021009W Bypass Coronary Artery, One Artery from Aorta with Autologous Venous Tissue, Open Approach (ICD-10-PCS; 2024-12-07)
PROC: 02580ZZ Destruction of Conduction Mechanism, Open Approach (ICD-10-PCS; 2024-12-07)
PROC: 02L70CK Occlusion of Left Atrial Appendage with Extraluminal Device, Open Approach (ICD-10-PCS; 2024-12-07)
PROC: 06BQ4ZZ Excision of Left Saphenous Vein, Percutaneous Endoscopic Approach (ICD-10-PCS; 2024-12-07)
PROC: B24BZZ4 Ultrasonography of Heart with Aorta, Transesophageal (ICD-10-PCS; 2024-12-07)
PROC: 02BG0ZZ Excision of Mitral Valve, Open Approach (ICD-10-PCS; 2024-12-07)
PROC: 02RF08Z Replacement of Aortic Valve with Zooplastic Tissue, Open Approach (ICD-10-PCS; 2024-12-07)
DX: I34.0 Nonrheumatic mitral (valve) insufficiency (principal); N39.0 Urinary tract infection, site not specified; D62 Acute posthemorrhagic anemia; J98.11 Atelectasis; I30.8 Other forms of acute pericarditis; I35.0 Nonrheumatic aortic (valve) stenosis; I25.10 Atherosclerotic heart disease of native coronary artery without angina pectoris; I48.91 Unspecified atrial fibrillation; I34.81 Nonrheumatic mitral (valve) annulus calcification; M81.0 Age-related osteoporosis without current pathological fracture; I10 Essential (primary) hypertension; E78.5 Hyperlipidemia, unspecified; B96.1 Klebsiella pneumoniae [K. pneumoniae] as the cause of diseases classified elsewhere; D69.59 Other secondary thrombocytopenia; E11.621 Type 2 diabetes mellitus with foot ulcer; L97.529 Non-pressure chronic ulcer of other part of left foot with unspecified severity; I95.81 Postprocedural hypotension; N31.9 Neuromuscular dysfunction of bladder, unspecified; E86.1 Hypovolemia; E87.70 Fluid overload, unspecified; Q05.9 Spina bifida, unspecified; Z79.82 Long term (current) use of aspirin; Z79.84 Long term (current) use of oral hypoglycemic drugs; Z79.899 Other long term (current) drug therapy; Z87.891 Personal history of nicotine dependence
CPT/HCPCS: 33259; 36415; 71045; 71046; 80048; 80053; 81003; 81015; 82248; 82330; 82565; 82805; 82810; 82947; 82962; 83036; 83735; 84132; 84302; 84520; 85014; 85018; 85025; 85027; 85049; 85610; 85730; 86803; 86850; 86900; 86901; 86920; 87070; 87077; 87086; 87186; 88305; 88311; 93005; 93308; 93312; 93320; 93321; 93325; 93880; 94002; 94640; J2916; P9016; P9045

== ENCOUNTER 2025-01-27 14:04 | Outpatient (RCR) | payer MEDICARE, OTHER, SELFPAY ==
[2025-01-18 14:00] LABS: Glucose - Point of Care 91 mg/dl (70-99)
[2025-01-18 14:55] LABS: Glucose - Point of Care 114 mg/dl (70-99)
[2025-01-20 09:39] LABS: HDL Cholesterol 36 mg/dl; LDL Cholesterol, Calculated 114 mg/dl; Very Low Density Lipoprotein 28 mg/dl (0-30)
[2025-01-20 13:11] LABS: Glucose - Point of Care 119 mg/dl (70-99)
[2025-01-20 14:08] LABS: Glucose - Point of Care 106 mg/dl (70-99)
[2025-01-23 13:00] LABS: Glucose - Point of Care 146 mg/dl (70-99)
[2025-01-23 14:00] LABS: Glucose - Point of Care 111 mg/dl (70-99)
[2025-01-25 13:06] LABS: Glucose - Point of Care 97 mg/dl (70-99)
[2025-01-25 14:05] LABS: Glucose - Point of Care 108 mg/dl (70-99)
[2025-01-27 13:04] LABS: Glucose - Point of Care 106 mg/dl (70-99)
[2025-01-27 14:04] LABS: Glucose - Point of Care 86 mg/dl (70-99)
== END 2025-01-27 23:59 | disposition home or self-care (01) ==
LOC: CRHB 14:04
PROVIDERS: ATTENDING PHYSICIAN Internal Medicine Cardiovascular Disease; FAMILY PHYSICIAN Nurse Practitioner Family
DX: Z95.1 Presence of aortocoronary bypass graft (principal); I25.10 Atherosclerotic heart disease of native coronary artery without angina pectoris (principal); Z95.4 Presence of other heart-valve replacement
CPT/HCPCS: 36415; 80061; 82962; G0422; G0423

== ENCOUNTER 2025-02-27 14:09 | Outpatient (RCR) | payer MEDICARE, OTHER, SELFPAY ==
[2025-02-01 13:12] LABS: Glucose - Point of Care 102 mg/dl (70-99)
[2025-02-01 14:09] LABS: Glucose - Point of Care 98 mg/dl (70-99)
== END 2025-02-27 23:59 | disposition home or self-care (01) ==
LOC: CRHB 14:09
PROVIDERS: ATTENDING PHYSICIAN Internal Medicine Cardiovascular Disease; FAMILY PHYSICIAN Nurse Practitioner Family
DX: Z95.1 Presence of aortocoronary bypass graft (principal); Z95.4 Presence of other heart-valve replacement
CPT/HCPCS: 82962; G0422; G0423

== ENCOUNTER 2025-03-31 16:01 | Outpatient (RCR) | payer MEDICARE, OTHER, SELFPAY | END 2025-03-31 23:59 | disposition home or self-care (01) | LOC: CRHB 16:01 | PROVIDERS: ATTENDING PHYSICIAN Internal Medicine Cardiovascular Disease; FAMILY PHYSICIAN Nurse Practitioner Family | DX: I25.10 Atherosclerotic heart disease of native coronary artery without angina pectoris (principal); Z95.1 Presence of aortocoronary bypass graft (principal); Z95.4 Presence of other heart-valve replacement | CPT/HCPCS: G0422; G0423 ==

== ENCOUNTER 2025-04-12 14:04 | Outpatient (RCR) | payer MEDICARE, OTHER, SELFPAY ==
[2025-04-14 11:08] LABS: HDL Cholesterol 36 mg/dl; LDL Cholesterol, Calculated 85 mg/dl; Very Low Density Lipoprotein 22 mg/dl (0-30)
== END 2025-04-12 14:45 | disposition home or self-care (01) ==
LOC: CRHB 14:04
PROVIDERS: ATTENDING PHYSICIAN Internal Medicine Cardiovascular Disease; FAMILY PHYSICIAN Nurse Practitioner Family
DX: Z95.1 Presence of aortocoronary bypass graft (principal); Z95.4 Presence of other heart-valve replacement
CPT/HCPCS: 36415; 80061; G0422; G0423

== ENCOUNTER → 2025-05-18 12:16 | Outpatient (REF) | payer MEDICARE, OTHER, SELFPAY ==
[2025-05-18 13:27] LABS: INR 1.36; PT 16.5 Sec (11.4-14.6)
== END ==
LOC: REG 12:16
PROVIDERS: ATTENDING PHYSICIAN Internal Medicine Cardiovascular Disease; FAMILY PHYSICIAN Nurse Practitioner Family; OTHER PHYSICIAN Internal Medicine Cardiovascular Disease
DX: I48.0 Paroxysmal atrial fibrillation (principal); I48.91 Unspecified atrial fibrillation; Z95.3 Presence of xenogenic heart valve
CPT/HCPCS: 36415; 85610

== ENCOUNTER → 2025-05-23 08:18 | Outpatient (REF) | payer MEDICARE, OTHER, SELFPAY ==
[2025-05-23 09:23] LABS: INR 2.51; PT 27.3 Sec (11.4-14.6)
== END ==
LOC: REG 08:18
PROVIDERS: ATTENDING PHYSICIAN Internal Medicine Cardiovascular Disease; FAMILY PHYSICIAN Nurse Practitioner Family
DX: Z95.3 Presence of xenogenic heart valve (principal); I48.0 Paroxysmal atrial fibrillation
CPT/HCPCS: 36415; 85610